=== PATIENT | male | born 1985 | race Caucasian/White ===

== ENCOUNTER 2020-05-19 18:22 | Emergency (ER) | payer OTHER ==
[2020-05-19] MEDS ORDERED: SODIUM CHLORIDE 0.9% 1,000 ML IV STA (19:22)
--- NOTE | 2020-05-19 20:19 | ED ---
General Adult HPI - General Chief complaint: Nausea/Vomiting/Diarrhea Stated complaint: WEAK, VOMMITING,, VISON LOSS Time Seen by Provider: 05/19/20 19:04 Source: patient Mode of arrival: ambulatory Limitations: no limitations - History of Present Illness Initial comments: 35-year-old male with a history of brain tumor and ongoing radiation treatment presents to the emergency department this evening with complaints of nausea, vomiting, and decreased appetite, onset today. Also reports a lack of energy for the last 4-5 days. Denies fever, headache, vision changes (from baseline), abdominal pain, and sick exposures. States he had one episode of vomiting today; has been able to clear liquids and a small amount of bland food. Patient denies any recent rash, chills, cough, shortness of breath, chest pain, diarrhea, constipation, back pain, numbness, tingling, dizziness, hematuria, dysuria, urinary urgency, urinary frequency, or any other complaints. - Related Data Allergies Allergy/AdvReac Type Severity Reaction Status Date / Time No Known Allergies Allergy Verified 05/19/20 18:40 Review of Systems ROS Statement: Those systems with pertinent positive or pertinent negative responses have been documented in the HPI. ROS Other: All systems not noted in ROS Statement are negative. Past Medical History Past Medical History: Cancer, Thyroid Disorder Additional Past Medical History / Comment(s): brain tumor History of Any Multi-Drug Resistant Organisms: None Reported Additional Past Surgical History / Comment(s): tumor removed Past Psychological History: No Psychological Hx Reported Smoking Status: Current some day smoker Past Alcohol Use History: None Reported Past Drug Use History: None Reported General Exam Limitations: no limitations (Well-developed, well-nourished male in no acute distress. Initial temperature 99.1, pulse 93, respirations 18, blood pressure 106/71, pulse ox 100% on room air.) General appearance: alert, in no apparent distress Eye exam: Present: normal appearance, PERRL, EOMI. Absent: scleral icterus, conjunctival injection, periorbital swelling Respiratory exam: Present: normal lung sounds bilaterally. Absent: respiratory distress, wheezes, rales, rhonchi, stridor Cardiovascular Exam: Present: regular rate, normal rhythm, normal heart sounds. Absent: systolic murmur, diastolic murmur, rubs, gallop, clicks GI/Abdominal exam: Present: soft, normal bowel sounds. Absent: distended, tenderness, guarding, rebound, rigid Neurological exam: Present: alert, oriented X3, CN II-XII intact Psychiatric exam: Present: normal affect, normal mood Skin exam: Present: warm, dry, intact, normal color. Absent: rash Course Vital Signs 05/19/20 18:33 Temperature 99.1 F Pulse Rate 93 Respiratory 18 Rate Blood Pressure 106/71 O2 Sat by Pulse 100 Oximetry Medical Decision Making - Medical Decision Making 35-year-old male with a history of brain tumor resection and ongoing radiation presents to the emergency department this evening with complaints of nausea and one episode of vomiting, onset today. Reports nonspecific fatigue and decreased appetite over the last 4-5 days. Patient denies any known sick contacts and states nausea has resolved prior to arrival. Mild dehydration evident in patient's lab work with a Sodium of 134 and BUN is 22. Patient did receive a liter of IV fluids and reports overall improvement. Encouraged to continue small amounts of fluid and increase as tolerated. Discussed importance of keeping all regularly scheduled follow-up appointments with specialists as well as establishing with a primary care provider. Return parameters were discussed in detail. Patient and his mother verbalized understanding and agree with this plan. - Lab Data Result diagrams: 05/19/20 19:36 05/19/20 19:36 Lab Results 05/19/20 05/19/20 05/19/20 Range/Units 19:36 19:36 19:36 WBC 3.9 (3.8-10.6) k/uL RBC 4.03 L (4.30-5.90) m/uL Hgb 11.6 L (13.0-17.5) gm/dL Hct 36.0 L (39.0-53.0) % MCV 89.2 (80.0-100.0) fL MCH 28.8 (25.0-35.0) pg MCHC 32.3 (31.0-37.0) g/dL RDW 15.9 H (11.5-15.5) % Plt Count 128 L (150-450) k/uL Neutrophils % 58 % Lymphocytes % 30 % Monocytes % 5 % Eosinophils % 4 % Basophils % 1 % Neutrophils # 2.3 (1.3-7.7) k/uL Lymphocytes # 1.2 (1.0-4.8) k/uL Monocytes # 0.2 (0-1.0) k/uL Eosinophils # 0.2 (0-0.7) k/uL Basophils # 0.0 (0-0.2) k/uL PT 11.3 (9.0-12.0) sec INR 1.1 (<1.2) APTT 28.5 (22.0-30.0) sec Sodium 134 L (137-145) mmol/L Potassium 4.4 (3.5-5.1) mmol/L Chloride 100 (98-107) mmol/L Carbon Dioxide 24 (22-30) mmol/L Anion Gap 10 mmol/L BUN 22 H (9-20) mg/dL Creatinine 1.09 (0.66-1.25) mg/dL Est GFR (CKD-EPI)AfAm >90 (>60 ml/min/1.73 sqM) Est GFR (CKD-EPI)NonAf 88 (>60 ml/min/1.73 sqM) Glucose 79 (74-99) mg/dL Plasma Lactic Acid Chema (0.7-2.0) mmol/L Calcium 9.5 (8.4-10.2) mg/dL Magnesium 2.5 H (1.6-2.3) mg/dL Total Bilirubin 1.6 H (0.2-1.3) mg/dL AST 24 (17-59) U/L ALT 11 (4-49) U/L Alkaline Phosphatase 49 (38-126) U/L Troponin I (0.000-0.034) ng/mL Total Protein 8.7 H (6.3-8.2) g/dL Albumin 4.9 (3.5-5.0) g/dL 05/19/20 05/19/20 Range/Units 19:36 19:36 WBC (3.8-10.6) k/uL RBC (4.30-5.90) m/uL Hgb (13.0-17.5) gm/dL Hct (39.0-53.0) % MCV (80.0-100.0) fL MCH (25.0-35.0) pg MCHC (31.0-37.0) g/dL RDW (11.5-15.5) % Plt Count (150-450) k/uL Neutrophils % % Lymphocytes % % Monocytes % % Eosinophils % % Basophils % % Neutrophils # (1.3-7.7) k/uL Lymphocytes # (1.0-4.8) k/uL Monocytes # (0-1.0) k/uL Eosinophils # (0-0.7) k/uL Basophils # (0-0.2) k/uL PT (9.0-12.0) sec INR (<1.2) APTT (22.0-30.0) sec Sodium (137-145) mmol/L Potassium (3.5-5.1) mmol/L Chloride (98-107) mmol/L Carbon Dioxide (22-30) mmol/L Anion Gap mmol/L BUN (9-20) mg/dL Creatinine (0.66-1.25) mg/dL Est GFR (CKD-EPI)AfAm (>60 ml/min/1.73 sqM) Est GFR (CKD-EPI)NonAf (>60 ml/min/1.73 sqM) Glucose (74-99) mg/dL Plasma Lactic Acid Chema 1.2 (0.7-2.0) mmol/L Calcium (8.4-10.2) mg/dL Magnesium (1.6-2.3) mg/dL Total Bilirubin (0.2-1.3) mg/dL AST (17-59) U/L ALT (4-49) U/L Alkaline Phosphatase (38-126) U/L Troponin I <0.012 (0.000-0.034) ng/mL Total Protein (6.3-8.2) g/dL Albumin (3.5-5.0) g/dL - EKG Data EKG shows normal: sinus rhythm Rate: normal EKG Comments: EKG was obtained at 1940 showing normal sinus rhythm. Ventricular rate 90, WI interval 208, QRS duration 96, QT/QTc 340/415. Interpreted as an abnormal ECG with right axis deviation, pulmonary disease pattern, and nonspecific T-wave abnormality. - Radiology Data Radiology results: report reviewed Two-view chest x-ray was obtained. Findings include normal size heart, normal pulmonary vasculature, clear lungs. Impression per Dr. Yoon is no acute pulmonary process. Disposition Clinical Impression: Dehydration, Nausea & vomiting Disposition: HOME SELF-CARE Condition: Good Instructions (If sedation given, give patient instructions): Dehydration (ED), Acute Nausea and Vomiting (ED) Additional Instructions: Increase fluids as tolerated. Rest. Follow-up with primary care provider in the next 1-2 days for recheck. Keep all scheduled appointments with your specialists. Return to the emergency department with any new, worsening, or concerning symptoms. Is patient prescribed a controlled substance at d/c from ED?: No Referrals: None,Stated [Primary Care Provider] - 1-2 days
[2020-05-19 20:26] LABS: Basophils % (A) 1 %; Eosinophils # (A) 0.2 k/uL (0-0.7); Eosinophils % (A) 4 %; HGB 11.6 gm/dL (13.0-17.5); Lymphocytes # (A) 1.2 k/uL (1.0-4.8); Lymphocytes % (A) 30 %; MCH 28.8 pg (25.0-35.0); MCHC 32.3 g/dL (31.0-37.0); MCV 89.2 fL (80.0-100.0); Mean Platelet Volume 11.6; Monocytes # (A) 0.2 k/uL (0-1.0); Monocytes % (A) 5 %; Neutrophils # (A) 2.3 k/uL (1.3-7.7); Neutrophils % (A) 58 %; Platelet Count 128 k/uL (150-450); RBC 4.03 m/uL (4.30-5.90); RDW 15.9 % (11.5-15.5); WBC 3.9 k/uL (3.8-10.6)
--- NOTE | 2020-05-19 20:34 | XR ---
EXAMINATION TYPE: XR chest 2V DATE OF EXAM: 05/19/2020 COMPARISON: None INDICATION: Weakness vomiting TECHNIQUE: Frontal and lateral views of the chest are obtained. FINDINGS: The heart size is normal. The pulmonary vasculature is normal. The lungs are clear. IMPRESSION: 1. No acute pulmonary process.
[2020-05-19 20:36] LABS: ALT 11 U/L (4-49); AST 24 U/L (17-59); African American GFR (CKD) >90 (>60 ml/min/1.73 sqM); Albumin 4.9 g/dL (3.5-5.0); Alkaline Phosphatase 49 U/L (38-126); Anion Gap 10 mmol/L; Blood Urea Nitrogen 22 mg/dL (9-20); Calcium 9.5 mg/dL (8.4-10.2); Carbon Dioxide 24 mmol/L (22-30); Chloride 100 mmol/L (98-107); Glucose 79 mg/dL (74-99); Magnesium 2.5 mg/dL (1.6-2.3); Non-African American GFR(CKD) 88 (>60 ml/min/1.73 sqM); Potassium 4.4 mmol/L (3.5-5.1); Sodium 134 mmol/L (137-145); Total Bilirubin 1.6 mg/dL (0.2-1.3); Total Protein 8.7 g/dL (6.3-8.2)
[2020-05-19 20:40] LABS: INR 1.1 (<1.2); Partial Thromboplastin Time 28.5 sec (22.0-30.0); Prothrombin Time 11.3 sec (9.0-12.0)
[2020-05-19 22:36] VITALS: RESP 16
[2020-05-19 22:37] VITALS: BP 138/68; PULSE 78; TEMP 98.8
== END 2020-05-19 22:40 | disposition home or self-care (01) ==
LOC: EC 18:22
DX: D49.6 Neoplasm of unspecified behavior of brain (principal); E86.0 Dehydration; F17.200 Nicotine dependence, unspecified, uncomplicated; Z20.828 Contact with and (suspected) exposure to other viral communicable diseases
CPT/HCPCS: 99285; 96360; 96361; 93005; 80053; 83605; 83735; 84484; 85025; 85610; 85730; 87040; 71046; U0003

== ENCOUNTER 2020-07-05 17:48 | Emergency (ER) | payer OTHER ==
[2020-07-05 18:15] VITALS: RESP 18
[2020-07-05] MEDS ORDERED: SODIUM CHLORIDE 0.9% 1,000 ML IV STA (18:56)
[2020-07-05 19:21] LABS: Basophils % (A) 1 %; Eosinophils # (A) 0.2 k/uL (0-0.7); Eosinophils % (A) 7 %; HCT 31.9 % (39.0-53.0); HGB 10.7 gm/dL (13.0-17.5); Lymphocytes # (A) 1.1 k/uL (1.0-4.8); Lymphocytes % (A) 34 %; MCH 29.2 pg (25.0-35.0); MCHC 33.5 g/dL (31.0-37.0); MCV 87.3 fL (80.0-100.0); Monocytes # (A) 0.2 k/uL (0-1.0); Monocytes % (A) 6 %; Neutrophils # (A) 1.7 k/uL (1.3-7.7); Neutrophils % (A) 51 %; Platelet Count 129 k/uL (150-450); RBC 3.65 m/uL (4.30-5.90); RDW 14.9 % (11.5-15.5); WBC 3.4 k/uL (3.8-10.6)
--- NOTE | 2020-07-05 19:23 | ED ---
General Adult HPI - General Source: patient, RN notes reviewed Mode of arrival: ambulatory Limitations: no limitations <Terry Mendiola - Last Filed: 07/05/20 20:20> <Sophia Aparicio - Last Filed: 07/06/20 13:23> - General Chief complaint: Skin/Abscess/Foreign Body Stated complaint: facial swelling Time Seen by Provider: 07/05/20 18:33 - History of Present Illness Initial comments: 35-year-old male with a past medical history of brain tumor presents to the emergency room for facial swelling and neck pain. Patient reports that he noticed today his face was swollen up to his eye. He noticed a lump to the back side of his neck. He has not had any fevers or chills. Patient does take steroids daily given his history of brain cancer. He had chemotherapy last in March.Patient has no other complaints at this time including shortness of breath, chest pain, abdominal pain, nausea or vomiting, headache, or visual changes. (Terry Mendiola) - Related Data Home Medications Medication Instructions Recorded Confirmed Hydrocortisone 20 mg PO BID 07/05/20 07/05/20 Levothyroxine Sodium 137 mcg PO DAILY 07/05/20 07/05/20 Vitamin D3 50,000iu 50,000 unit PO Q7D 07/05/20 07/05/20 Previous Rx's Medication Instructions Recorded Cephalexin [Keflex] 500 mg PO Q6HR 10 Days #40 cap 07/05/20 Sulfamethox-Tmp 800-160Mg [Bactrim 1 tab PO Q12HR #20 tab 07/05/20 DS 800-160 mg] Allergies Allergy/AdvReac Type Severity Reaction Status Date / Time No Known Allergies Allergy Verified 07/05/20 19:41 Review of Systems ROS Other: All systems not noted in ROS Statement are negative. <Terry Mendiola - Last Filed: 07/05/20 20:20> ROS Other: All systems not noted in ROS Statement are negative. <Sophia Aparicio - Last Filed: 07/06/20 13:23> ROS Statement: Those systems with pertinent positive or pertinent negative responses have been documented in the HPI. Past Medical History Past Medical History: Cancer, Thyroid Disorder Additional Past Medical History / Comment(s): brain tumor History of Any Multi-Drug Resistant Organisms: None Reported Additional Past Surgical History / Comment(s): tumor removed (not able to get it all) Past Psychological History: No Psychological Hx Reported Smoking Status: Current some day smoker Past Alcohol Use History: None Reported Past Drug Use History: None Reported <Terry Mendiola P - Last Filed: 07/05/20 20:20> General Exam Limitations: no limitations General appearance: alert, in no apparent distress Head exam: Present: atraumatic, normocephalic, normal inspection Eye exam: Present: normal appearance, PERRL, EOMI, periorbital swelling (The patient has mild edema of the right maxillary area up to below the right eye. This is nonerythematous, nonindurated, nontender.). Absent: scleral icterus, conjunctival injection ENT exam: Present: normal exam, normal oropharynx (Patient does not have any evidence of dental abscess with direct visualization and palpation of gumline nor any pain with percussion of the teeth with a tongue blade.), mucous membranes moist Neck exam: Present: normal inspection, full ROM, other (Patient has a nodule noted to the right posterior neck measuring about 1 cm x 1 cm that is tender and slightly erythematous. This is not midline. He has full range motion of the neck. No other surrounding edema or erythema. No tracking redness.). Absent: tenderness, meningismus, lymphadenopathy Respiratory exam: Present: normal lung sounds bilaterally. Absent: respiratory distress, wheezes, rales, rhonchi, stridor Cardiovascular Exam: Present: regular rate, normal rhythm, normal heart sounds. Absent: systolic murmur, diastolic murmur, rubs, gallop, clicks GI/Abdominal exam: Present: soft, normal bowel sounds. Absent: distended, tenderness, guarding, rebound, rigid Neurological exam: Present: alert <Terry Mendiola P - Last Filed: 07/05/20 20:20> Course <Terry Mendiola P - Last Filed: 07/05/20 20:20> Vital Signs 07/05/20 07/05/20 18:10 20:42 Temperature 99 F 98.8 F Pulse Rate 79 77 Respiratory 18 18 Rate Blood Pressure 110/74 122/78 O2 Sat by Pulse 100 100 Oximetry - Reevaluation(s) Reevaluation #1: 07/05/20 20:20 Patient was evaluated by Dr. Aparicio. (Terry Mendiola) Medical Decision Making - Lab Data Result diagrams: 07/05/20 19:11 07/05/20 19:11 <Terry Mendiola - Last Filed: 07/05/20 20:20> - Lab Data Result diagrams: 07/05/20 19:11 07/05/20 19:11 <Sophia Aparicio - Last Filed: 07/06/20 13:23> - Medical Decision Making HPI and physical exam as documented. Patient does have minimal edema of the maxillary area extending up into the inferior periorbital area. This is non-erythematous, nontender. Patient does not have any swelling of the anterior neck. No difficulty swallowing. No dental pain or evidence of dental abscess on direct visualization or palpation of the gum line. No tenderness of the teeth with percussion with tongue blade. He does have a small 1 cm x 1 cm nodu le noted to the posterior right paraspinal area. Minimal erythema. CBC unremarkable. Hemoglobin and platelet count are stable. CMP unremarkable. Given patient's history a computed tomography scan was ordered after patient was evaluated by Dr. Aparicio. This showed postsurgical changes as well as subcutaneous edema consistent with cellulitis over the posterior neck. Mild subcutaneous edema over the anterior right maxilla. At this time patient will be started on antibiotics. He will follow-up with his doctor in one to 2 days. He will return here for any worsening symptoms return discussed in depth with him. (Terry Mendiola) I was available for consultation in the emergency department. The history and physical exam were done by the midlevel provider. I was consulted for this patients care. I reviewed the case with the midlevel provider and based on their presentation of the patient, I agree with the assessment, medical decision making and plan of care as documented. Chart was dictated using [employer] dictation software. Attempts were made to correct any dictation errors however some typographical errors may persist. Patient was seen during a national state of emergency due to the Covid-19 pandemic. (Sophia Aparicio) - Lab Data Lab Results 07/05/20 07/05/20 07/05/20 Range/Units 19:11 19:11 19:11 WBC 3.4 L (3.8-10.6) k/uL RBC 3.65 L (4.30-5.90) m/uL Hgb 10.7 L (13.0-17.5) gm/dL Hct 31.9 L (39.0-53.0) % MCV 87.3 (80.0-100.0) fL MCH 29.2 (25.0-35.0) pg MCHC 33.5 (31.0-37.0) g/dL RDW 14.9 (11.5-15.5) % Plt Count 129 L (150-450) k/uL MPV 9.0 Neutrophils % 51 % Lymphocytes % 34 % Monocytes % 6 % Eosinophils % 7 % Basophils % 1 % Neutrophils # 1.7 (1.3-7.7) k/uL Lymphocytes # 1.1 (1.0-4.8) k/uL Monocytes # 0.2 (0-1.0) k/uL Eosinophils # 0.2 (0-0.7) k/uL Basophils # 0.0 (0-0.2) k/uL Sodium 140 (137-145) mmol/L Potassium 3.8 (3.5-5.1) mmol/L Chloride 108 H (98-107) mmol/L Carbon Dioxide 27 (22-30) mmol/L Anion Gap 5 mmol/L BUN 12 (9-20) mg/dL Creatinine 0.86 (0.66-1.25) mg/dL Est GFR (CKD-EPI)AfAm >90 (>60 ml/min/1.73 sqM) Est GFR (CKD-EPI)NonAf >90 (>60 ml/min/1.73 sqM) Glucose 70 L (74-99) mg/dL Plasma Lactic Acid Chema 1.1 (0.7-2.0) mmol/L Calcium 8.8 (8.4-10.2) mg/dL Total Bilirubin 0.6 (0.2-1.3) mg/dL AST 31 (17-59) U/L ALT 12 (4-49) U/L Alkaline Phosphatase 48 (38-126) U/L Total Protein 7.1 (6.3-8.2) g/dL Albumin 4.0 (3.5-5.0) g/dL Disposition Is patient prescribed a controlled substance at d/c from ED?: No Time of Disposition: 20:28 <Marlena,Terry P - Last Filed: 07/05/20 20:20> <Sophia Aparicio - Last Filed: 07/06/20 13:23> Clinical Impression: Cellulitis Disposition: HOME SELF-CARE Condition: Good Instructions (If sedation given, give patient instructions): Cellulitis (ED) Additional Instructions: Please take antibiotic as directed. Please follow-up with your doctor in one to 2 days. If symptoms are worsening return to the emergency room. Prescriptions: Sulfamethox-Tmp 800-160Mg [Bactrim DS 800-160 mg] 1 tab PO Q12HR #20 tab Cephalexin [Keflex] 500 mg PO Q6HR 10 Days #40 cap Referrals: Roddy Langford [STAFF PHYSICIAN] - 1-2 days
[2020-07-05 19:27] LABS: ALT 12 U/L (4-49); AST 31 U/L (17-59); African American GFR (CKD) >90 (>60 ml/min/1.73 sqM); Alkaline Phosphatase 48 U/L (38-126); Anion Gap 5 mmol/L; Blood Urea Nitrogen 12 mg/dL (9-20); Calcium 8.8 mg/dL (8.4-10.2); Carbon Dioxide 27 mmol/L (22-30); Chloride 108 mmol/L (98-107); Glucose 70 mg/dL (74-99); Non-African American GFR(CKD) >90 (>60 ml/min/1.73 sqM); Potassium 3.8 mmol/L (3.5-5.1); Sodium 140 mmol/L (137-145); Total Bilirubin 0.6 mg/dL (0.2-1.3); Total Protein 7.1 g/dL (6.3-8.2)
--- NOTE | 2020-07-05 20:03 | CT ---
EXAMINATION TYPE: CT soft tissue neck w con DATE OF EXAM: 07/05/2020 COMPARISON: None HISTORY: Facial swelling x1 day. CT DLP: 328.6 mGycm Automated exposure control for dose reduction was used. CONTRAST: Performed with IV Contrast, patient injected with 100ml mL of Isovue 300. Images were obtained from the level of the aortic arch to the orbits with IV contrast. The globes are symmetric. There is no evidence of retro-orbital mass. Nasal bone is intact. There is fairly normal aeration of the paranasal sinuses. There is large bony defect involving the skull base at the sphenoid bone in the midline relate to pituitary surgery. There is fat density at the skull ba se consistent with packing of fatty tissue at the surgery site. The retropharyngeal soft tissues are intact. Epiglottis is normal. Tongue appears normal. The subglot tic trachea appears normal. There is mild subcutaneous edema in the posterior neck in the midline into the right side consistent with focal cellulitis. I see no cervical adenopathy. There is normal contrast opacification of the ca rotid arteries and jugular veins. Mandible is intact. The maxilla is intact. Zygomatic arches appear normal. There is mild soft tissue swelling in the subcutaneous tissues over the anterior right maxill a. The parotid glands are symmetric. Submandibular salivary glands are symmetric. IMPRESSION: Pituitary fossa surgery. No obvious sign of recurrent tumor. Comparison with an old exam would be hel pful. Subcutaneous edema consistent with cellulitis over the posterior neck. Mild subcutaneous edema over the anterior right maxilla.
[2020-07-05] MEDS ORDERED: CEPHALEXIN 500 MG CAP PO STA (20:21)
[2020-07-05] MEDS ORDERED: SULFAMETHOX-TMP 800-160MG 1 EACH TAB PO STA (20:21)
[2020-07-05 20:45] VITALS: BP 122/78; PULSE 77; TEMP 98.8
== END 2020-07-05 20:45 | disposition home or self-care (01) ==
LOC: EC 17:48
DX: L03.221 Cellulitis of neck (principal); R59.0 Localized enlarged lymph nodes; E07.9 Disorder of thyroid, unspecified; F17.200 Nicotine dependence, unspecified, uncomplicated; Z79.890 Hormone replacement therapy; Z85.841 Personal history of malignant neoplasm of brain
CPT/HCPCS: 36415; 80053; 83605; 85025; 70491; 99284; 96360; Q9967

== ENCOUNTER → 2022-05-02 | Outpatient (CLI) | payer OTHER ==
[2022-05-02 22:35] LABS: Appearance,Urine Clear (Clear); Bilirubin,Urine Negative (Negative); Blood,Urine Negative (Negative); Color,Urine Yellow (Yellow); Ketones,Urine Trace mg/dL (Negative); Nitrite,Urine Negative (Negative); Specific Gravity,Urine 1.027 (1.001-1.030); Urobilinogen,Urine 0.2 (0.2,1.0)
[2022-05-02 23:15] LABS: Basophils # (A) 0.06 X 10*3/uL (0.00-0.10); Basophils % (A) 1.2 %; Eosinophils % (A) 8.1 %; HCT 28.1 % (39.6-50.0); HGB 9.3 g/dL (13.0-17.0); Immature Grans, Automated 0 %; Lymphocytes # (A) 2.55 X 10*3/uL (0.90-5.00); Lymphocytes % (A) 51.7 %; MCH 28.5 pg (27.0-32.0); MCHC 33.1 g/dL (32.0-37.0); MCV 86.2 fL (80.0-97.0); Mean Platelet Volume 12.6 fL (9.5-12.2); Monocytes # (A) 0.31 X 10*3/uL (0.20-1.00); Monocytes % (A) 6.3 %; NRBC Per 100 WBC 0 /100 WBCS (0.0-0.0); Neutrophils # (A) 1.61 X 10*3/uL (1.80-7.70); Neutrophils % (A) 32.7 %; Platelet Count 134 X 10*3/uL (140-440); RBC 3.26 X 10*6/uL (4.40-5.60); RDW 15.5 % (11.5-14.5); WBC 4.93 X 10*3/uL (4.50-10.00)
[2022-05-02 23:32] LABS: % Iron Saturation 44.05 (15.00-50.00); ALT 11 U/L (10-49); AST 33 U/L (14-35); African American GFR (CKD) 93.7 (60.0-200.0); Albumin 4.4 g/dL (3.8-4.9); Albumin/Globulin Ratio 1.73 (1.60-3.17); Alkaline Phosphatase 40 U/L (41-126); BUN/Creat Ratio 11.13 Ratio (12.00-20.00); Blood Urea Nitrogen 12.8 mg/dL (9.0-27.0); Calcium 9.3 mg/dL (8.7-10.3); Carbon Dioxide 24.4 mmol/L (20.0-27.5); Chloride 105 mmol/L (96-109); Globulin 2.6 g/dL (1.6-3.3); Glucose 85 mg/dL (70-110); Iron 103 ug/dL (65-175); Non-African American GFR(CKD) 80.8 (60.0-200.0); Phosphorus 4.5 mg/dL (2.4-5.1); Potassium 4.2 mmol/L (3.5-5.5); Sodium 139 mmol/L (135-145); Total Iron Binding Capacity 234 ug/dL (228-460)
[2022-05-03 00:05] LABS: Creatine Kinase 365 U/L (35-257)
[2022-05-03 00:10] LABS: Erythrocyte Sedimentation Rate 26 mm/Hr (0-15)
[2022-05-03 00:21] LABS: Thyroid Peroxidase Antibodies 9.5 U/mL (0.0-33.0)
[2022-05-03 00:31] LABS: Chol/HDL Ratio 10.28 Ratio
[2022-05-03 00:41] LABS: T4, Free (Free Thyroxine) <0.100 ng/dL (0.800-1.800)
--- NOTE | 2022-05-03 07:22 | XR ---
EXAMINATION TYPE: XR chest 2V DATE OF EXAM: 05/03/2022 6:25 AM COMPARISON: Chest radiographs from 05/19/2020 TECHNIQUE: XR chest 2V Frontal and lateral views of the chest. CLINICAL INDICATION:Male, 37 years old with history of R0602 SOB; FINDINGS: Lungs/Pleura: There is no evidence of pleural effusion, focal consolidation, or pneumothorax. Pulmonary vascularity: Unremarkable. Heart/mediastinum: Cardiomediastinal silhouette is unremarkable. Musculoskeletal: No acute osseous pathology. IMPRESSION: No acute cardiopulmonary disease/process.
[2022-05-03 19:47] LABS: Microalbumin Creatinine Ratio <30 mg/g Creat (0-30)
== END | disposition home or self-care (01) ==
LOC: LABWHC1 16:26
PROVIDERS: ATTEND Internal Medicine
DX: E78.5 Hyperlipidemia, unspecified (principal); E55.9 Vitamin D deficiency, unspecified; I95.9 Hypotension, unspecified; R06.02 Shortness of breath; E87.8 Other disorders of electrolyte and fluid balance, not elsewhere classified; E03.9 Hypothyroidism, unspecified; D64.9 Anemia, unspecified
CPT/HCPCS: 36415; 71046; 80053; 80061; 81003; 82043; 82306; 82550; 82570; 82728; 83036; 83540; 83550; 83721; 83735; 83970; 84100; 84439; 84443; 85025; 85652; 86140; 86376; 86800

== ENCOUNTER → 2022-07-26 | Outpatient (CLI) | payer OTHER ==
[2022-07-26 16:31] LABS: African American GFR (CKD) 110.9 (60.0-200.0); Albumin 4.3 g/dL (3.8-4.9); Albumin/Globulin Ratio 1.65 (1.60-3.17); Anion Gap 9.8 mmol/L (10.00-18.00); BUN/Creat Ratio 16.1 Ratio (12.00-20.00); Blood Urea Nitrogen 16.1 mg/dL (9.0-27.0); Calcium 9.2 mg/dL (8.7-10.3); Carbon Dioxide 26.2 mmol/L (20.0-27.5); Follicle Stimulating Hormone 0.8 mIU/mL; Globulin 2.6 g/dL (1.6-3.3); Luteinizing Hormone 0.6 mIU/mL; Non-African American GFR(CKD) 95.7 (60.0-200.0); Prolactin 5.1 ng/mL (2.100-17.700); Total Bilirubin 0.4 mg/dL (0.30-1.20); Total Protein 6.9 g/dL (6.2-8.2)
== END | disposition home or self-care (01) ==
LOC: LABWHC1 07:59
PROVIDERS: ATTEND Internal Medicine
DX: E23.0 Hypopituitarism (principal)
CPT/HCPCS: 36415; 80053; 82024; 82040; 82533; 83001; 83002; 84146; 84270; 84305; 84403

== ENCOUNTER → 2023-01-08 | Outpatient (CLI) | payer OTHER ==
[2023-01-08 16:30] LABS: Basophils # (A) 0.08 X 10*3/uL (0.00-0.10); Basophils % (A) 1.7 %; Eosinophils # (A) 0.44 X 10*3/uL (0.04-0.35); Eosinophils % (A) 9.5 %; HCT 31.1 % (39.6-50.0); HGB 9.9 d/dL (12.0-15.0); Immature Grans, Automated 0 %; Lymphocytes # (A) 2.41 X 10*3/uL (0.90-5.00); Lymphocytes % (A) 51.8 %; MCH 28.8 pg (27.0-32.0); MCHC 31.8 d/dL (32.0-37.0); MCV 90.4 FL (80.0-97.0); Mean Platelet Volume 12.5 FL (9.5-12.2); Monocytes # (A) 0.24 X 10*3/uL (0.20-1.00); Monocytes % (A) 5.2 %; NRBC Per 100 WBC 0 X 10*3/uL (0.00-0.01); Neutrophils # (A) 1.48 X 10*3/uL (1.80-7.70); Neutrophils % (A) 31.8 %; Platelet Count 198 X 10*3/uL (140-440); RBC 3.44 X 10*6/uL (4.40-5.60); RDW 15.6 % (11.5-14.5); WBC 4.65 X 10*3/uL (4.50-10.00)
[2023-01-08 16:46] LABS: Erythrocyte Sedimentation Rate 64 mm/Hr (0-15)
[2023-01-08 17:05] LABS: Thyroid Peroxidase Antibodies <9.0 U/mL (0.0-33.0)
[2023-01-08 17:19] LABS: % Iron Saturation 24.29 (15.00-50.00); Chol/HDL Ratio 10.66 Ratio; Creatine Kinase 677 U/L (35-257); Iron 68 UG/DL (65-175); LDL Cholesterol,Calculated 300.1 mg/dL (0.0-131.0); Magnesium 2.1 mg/dL (1.5-2.4); Phosphorus 4.8 mg/dL (2.4-5.1); Total Iron Binding Capacity 280 UG/DL (228-460); Uric Acid 5.7 mg/dL (3.7-8.7)
[2023-01-08 17:20] LABS: ALT 39 U/L (10-49); AST 74 U/L (14-35); Albumin 4.7 d/dL (3.8-4.9); Albumin/Globulin Ratio 1.68 Ratio (1.60-3.17); Alkaline Phosphatase 60 U/L (41-126); BUN/Creat Ratio 13.83 Ratio (12.00-20.00); Blood Urea Nitrogen 16.6 mg/dL (9.0-27.0); Calcium 9.7 mg/dL (8.7-10.3); Carbon Dioxide 25.6 mmol/L (21.6-31.8); Chloride 103 mmol/L (96-109); Globulin 2.8 d/dL (1.6-3.3); Glucose 74 mg/dL (70-110); Sodium 141 mmol/L (135-145); Total Bilirubin 0.4 mg/dL (0.3-1.2); Total Protein 7.5 d/dL (6.2-8.2)
[2023-01-08 18:00] LABS: Testosterone <10.00 ng/mL (123.06-813.86)
== END | disposition home or self-care (01) ==
LOC: LABWHC1 11:40
PROVIDERS: ATTEND Internal Medicine
DX: Z00.00 Encounter for general adult medical examination without abnormal findings (principal); I95.9 Hypotension, unspecified; D64.9 Anemia, unspecified; E87.1 Hypo-osmolality and hyponatremia; E03.9 Hypothyroidism, unspecified; E23.0 Hypopituitarism
CPT/HCPCS: 36415; 80053; 80061; 82043; 82306; 82533; 82550; 82570; 82728; 83036; 83540; 83550; 83735; 83970; 84100; 84146; 84402; 84403; 84439; 84443; 84550; 85025; 85652; 86140; 86376; 86800

== ENCOUNTER → 2023-02-09 | Outpatient (CLI) | payer OTHER ==
[2023-02-10 02:56] LABS: ALT 23 U/L (10-49); AST 46 U/L (14-35); Albumin 4.8 d/dL (3.8-4.9); Albumin/Globulin Ratio 1.71 Ratio (1.60-3.17); Alkaline Phosphatase 48 U/L (41-126); Blood Urea Nitrogen 14.3 mg/dL (9.0-27.0); Calcium 9.9 mg/dL (8.7-10.3); Carbon Dioxide 22.2 mmol/L (21.6-31.8); Chloride 103 mmol/L (96-109); Chol/HDL Ratio 8.41 Ratio; Globulin 2.8 d/dL (1.6-3.3); Glucose 69 mg/dL (70-110); LDL Cholesterol,Calculated 244.7 mg/dL (0.0-131.0); Potassium 3.8 mmol/L (3.5-5.5); Sodium 140 mmol/L (135-145); T4, Free (Free Thyroxine) 0.17 ng/dL (0.80-1.80); Total Bilirubin 0.7 mg/dL (0.3-1.2); Total Protein 7.6 d/dL (6.2-8.2)
== END | disposition home or self-care (01) ==
LOC: LABWHC1 13:18
PROVIDERS: ATTEND Internal Medicine
DX: E23.0 Hypopituitarism (principal); E89.0 Postprocedural hypothyroidism; E78.5 Hyperlipidemia, unspecified
CPT/HCPCS: 36415; 80053; 80061; 84439; 84443

== ENCOUNTER 2023-04-29 09:25 | Emergency (ER) | payer OTHER ==
[2023-04-29 09:31] VITALS: BP 105/69; PULSE 101; RESP 18; TEMP 98.6
--- NOTE | 2023-04-29 09:40 | ED ---
URI HPI - General Chief Complaint: Upper Respiratory Infection Stated Complaint: Weakness Time Seen by Provider: 04/29/23 09:34 Source: patient, RN notes reviewed Mode of arrival: ambulatory Limitations: no limitations - History of Present Illness Initial Comments: 38-year-old male presents emergency Department chief complaint cough and cold like symptoms. Patient's been sick last few days. Patient has nasal congestion, lightheadedness denies any chest pain or shortness breath no sore throat states she just doesn't feel well no sick contacts denies any significant past medical history for lung disease or immunocompromise. - Related Data Home Medications Medication Instructions Recorded Confirmed Hydrocortisone 20 mg PO BID 07/05/20 07/05/20 Levothyroxine Sodium 137 mcg PO DAILY 07/05/20 07/05/20 Vitamin D3 50,000iu 50,000 unit PO Q7D 07/05/20 07/05/20 Previous Rx's Medication Instructions Recorded Cephalexin [Keflex] 500 mg PO Q6HR 10 Days #40 cap 07/05/20 Sulfamethox-Tmp 800-160Mg [Bactrim 1 tab PO Q12HR #20 tab 07/05/20 DS 800-160 mg] Allergies Allergy/AdvReac Type Severity Reaction Status Date / Time No Known Allergies Allergy Verified 04/29/23 09:30 Review of Systems ROS Statement: Those systems with pertinent positive or pertinent negative responses have been documented in the HPI. ROS Other: All systems not noted in ROS Statement are negative. Past Medical History Past Medical History: Cancer, Thyroid Disorder Additional Past Medical History / Comment(s): brain tumor History of Any Multi-Drug Resistant Organisms: None Reported Additional Past Surgical History / Comment(s): tumor removed (not able to get it all) Past Psychological History: No Psychological Hx Reported Smoking Status: Current some day smoker Past Alcohol Use History: None Reported Past Drug Use History: None Reported General Exam Limitations: no limitations General appearance: alert, in no apparent distress Head exam: Present: atraumatic, normocephalic, normal inspection Eye exam: Present: normal appearance, PERRL, EOMI. Absent: scleral icterus, conjunctival injection, periorbital swelling ENT exam: Present: normal exam, normal oropharynx, mucous membranes moist Neck exam: Present: normal inspection, full ROM. Absent: tenderness, meningismus, lymphadenopathy Respiratory exam: Present: normal lung sounds bilaterally. Absent: respiratory distress, wheezes, rales, rhonchi, stridor Cardiovascular Exam: Present: regular rate, normal rhythm, normal heart sounds. Absent: systolic murmur, diastolic murmur, rubs, gallop, clicks GI/Abdominal exam: Present: soft, normal bowel sounds. Absent: distended, tenderness, guarding, rebound, rigid Neurological exam: Present: alert, oriented X3 Skin exam: Present: warm, dry, intact, normal color. Absent: rash Course Vital Signs 04/29/23 04/29/23 09:27 09:44 Temperature 98.6 F Pulse Rate 101 H Respiratory 18 18 Rate Blood Pressure 105/69 O2 Sat by Pulse 99 Oximetry Medical Decision Making - Medical Decision Making Was pt. sent in by a medical professional or institution (TROY Gasca, CAUST[employer] LOADER, urgent care, hospital, or long term...) When possible be specific @ -No Did you speak to anyone other than the patient for history (EMS, parent, family, police, friend...)? What history was obtained from this source @ -No Did you review nursing and triage notes (agree or disagree)? Why? @ -I reviewed and agree with nursing and triage notes Were old charts reviewed (outside hosp., previous admission, EMS record, old EKG, old radiological studies, urgent care reports/EKG's, long term records)? Report findings @ -No old charts were reviewed Differential Diagnosis (chest pain, altered mental status, abdominal pain women, abdominal pain men, vaginal bleeding, weakness, fever, dyspnea, syncope, headache, dizziness, GI bleed, back pain, seizure, CVA, palpatations, mental health, musculoskeletal)? @ -URI, sinusitis, covid EKG interpreted by me (3pts min.). @ -None X-rays interpreted by me (1pt min.). @ -None done CT interpreted by me (1pt min.). @ -None done U/S interpreted by me (1pt. min.). @ -None done What testing was considered but not performed or refused? (CT, X-rays, U/S, labs)? Why? @ -None What meds were considered but not given or refused? Why? @ -None Did you discuss the management of the patient with other professionals (professionals i.e. Dr., PA, CAUSTICS LOADER, lab, RT, psych nurse, high school social science teacher, career services manager, teacher, sports development officer, telephonic case manager)? Give summary @ -No Was smoking cessation discussed for >3mins.? @ -No Was critical care preformed (if so, how long)? @ -No Were there social determinants of health that impacted care today? How? (Homelessness, low income, unemployed, alcoholism, drug addiction, transportation, low edu. Level, literacy, decrease access to med. care, usp, rehab)? @ -No Was there de-escalation of care discussed even if they declined (Discuss DNR or withdrawal of care, Hospice)? DNR status @ -No What co-morbidities impacted this encounter? (DM, HTN, Smoking, COPD, CAD, Cancer, CVA, ARF, Chemo, Hep., AIDS, mental health diagnosis, sleep apnea, morbid obesity)? @ -None Was patient admitted / discharged? Hospital course, mention meds given and route, prescriptions, significant lab abnormalities, going to OR and other pertinent info. @ -Patient left AMA prior to results Undiagnosed new problem with uncertain prognosis? @ -No Drug Therapy requiring intensive monitoring for toxicity (Heparin, Nitro, Insulin, Cardizem)? @ -No Were any procedures done? @ -[No] Diagnosis/symptom? @ -[URI] Acute, or Chronic, or Acute on Chronic? @ -[Acute] Uncomplicated (without systemic symptoms) or Complicated (systemic symptoms)? @ -[Uncomplicated] Side effects of treatment? @ -[No] Exacerbation, Progression, or Severe Exacerbation? @ -[No] Poses a threat to life or bodily function? How? (Chest pain, USA, [place], pneumonia, PE, COPD, DKA, ARF, appy, cholecystitis, CVA, Diverticulitis, Homicidal, Suicidal, threat to staff... and all critical care pts) @ -[No] - Lab Data Lab Results 04/29/23 Range/Units 09:41 Influenza Type A (PCR) Not Detected (Not Detectd) Influenza Type B (PCR) Not Detected (Not Detectd) RSV (PCR) Not Detected (Not Detectd) SARS-CoV-2 (PCR) Not Detected (Not Detectd) Disposition Clinical Impression: Acute upper respiratory infection Disposition: LEFT AGAINST MEDICAL ADVICE Referrals: None,Stated [Primary Care Provider] - 1-2 days Time of Disposition: 10:15
== END 2023-04-29 10:39 | disposition left against medical advice (07) ==
LOC: EC 09:25
DX: J06.9 Acute upper respiratory infection, unspecified (principal); E07.9 Disorder of thyroid, unspecified; F17.200 Nicotine dependence, unspecified, uncomplicated; Z79.890 Hormone replacement therapy; Z53.29 Procedure and treatment not carried out because of patient's decision for other reasons; Z20.822 Contact with and (suspected) exposure to COVID-19
CPT/HCPCS: 87636; 99285

== ENCOUNTER 2024-07-21 15:44 | Inpatient (IN) | payer MEDICAID, OTHER ==
--- NOTE | 2024-07-21 16:40 | ED ---
General Adult HPI - General Source: patient, RN notes reviewed Mode of arrival: ambulatory Limitations: no limitations <Gunjan Montaño - Last Filed: 07/21/24 16:37> <Julissa Miller - Last Filed: 07/22/24 02:00> - General Chief complaint: Psychiatric Symptoms Stated complaint: Mental Health Time Seen by Provider: 07/21/24 16:37 - History of Present Illness Initial comments: Quick [id number] male presenting with uncle for altered mental status x 2 days. Uncle reports patient has been pacing the home for the past 2 days. Denies suicidal or homicidal ideation. Uncle states his bizarre behavior is scaring everyone else in the household. States this is unusual behavior for him. He does report patient has a history of a brain tumor that was removed 2 years ago. No other known health conditions. (Gunjan Montaño) This is a 39-year-old male presenting with his uncle for complaint of changes and behavior and mental status over the past 2 days. Patient's uncle at bedside states the patient has been pacing around the home over the past 2 days and has not been acting himself. Patient is denying suicidal homicidal ideation. Patient endorses auditory hallucination. Denies visual hallucination. Denies previous suicidal attempts. Bedside states that the bizarre behavior of the patient is concerning and would like him to be evaluated. Patient does have a remote brain tumor 2 years ago on Eliquis concerned that this may have returned. He denies drug or alcohol use. No reported medical conditions. (Julissa Miller) - Related Data Home Medications Medication Instructions Recorded Confirmed Atorvastatin [Lipitor] 40 mg PO HS 07/21/24 07/21/24 Hydrocortisone [Cortef] 10 mg PO Q12H 07/21/24 07/21/24 Levothyroxine Sodium [Synthroid] 100 mcg PO DAILY 07/21/24 07/21/24 Allergies Allergy/AdvReac Type Severity Reaction Status Date / Time No Known Allergies Allergy Verified 07/21/24 20:56 Review of Systems ROS Other: All systems not noted in ROS Statement are negative. <Gunjan Montaño - Last Filed: 07/21/24 16:37> ROS Other: All systems not noted in ROS Statement are negative. <Julissa Miller - Last Filed: 07/22/24 02:00> ROS Statement: Those systems with pertinent positive or pertinent negative responses have been documented in the HPI. Past Medical History Past Medical History: Cancer, Thyroid Disorder Additional Past Medical History / Comment(s): brain tumor History of Any Multi-Drug Resistant Organisms: None Reported Additional Past Surgical History / Comment(s): tumor removed (not able to get it all) Past Psychological History: Depression Smoking Status: Current some day smoker Past Alcohol Use History: None Reported Past Drug Use History: None Reported <Gunjan Montaño - Last Filed: 07/21/24 16:37> General Exam Limitations: no limitations <Gunjan Montaño - Last Filed: 07/21/24 16:37> General appearance: alert, in no apparent distress ENT exam: Present: normal exam, mucous membranes moist Neck exam: Present: normal inspection. Absent: tenderness, meningismus, lym phadenopathy Respiratory exam: Present: normal lung sounds bilaterally. Absent: respiratory distress, wheezes, rales, rhonchi, stridor Cardiovascular Exam: Present: regular rate, normal rhythm, normal heart sounds. Absent: systolic murmur, diastolic murmur, rubs, gallop, clicks GI/Abdominal exam: Present: soft, normal bowel sounds. Absent: distended, tenderness, guarding, rebound, rigid Extremities exam: Present: normal inspection, full ROM, normal capillary refill. Absent: tenderness, pedal edema, joint swelling, calf tenderness Psychiatric exam: Present: flat affect Expanded Focused psych exam: Present: paranoid, perseverating, restlessness <Julissa Miller - Last Filed: 07/22/24 02:00> - General Exam Comments Initial Comments: Visual Physical Exam Vital signs reviewed General: Well-appearing, nontoxic, no acute distress. Head: Normocephalic, atraumatic Eyes: PERRLA, EOMI ENT: Airway patent Chest: Nonlabored breathing Skin: No visual rash, normal skin tone Neuro: Alert and oriented 3 Musculoskeletal: No gross abnormalities (Gunjan Montñao) Course Vital Signs 07/21/24 16:24 Temperature 98.2 F Pulse Rate 72 Respiratory 18 Rate Blood Pressure 127/83 O2 Sat by Pulse 100 Oximetry Medical Decision Making <Gunjan Montaño - Last Filed: 07/21/24 16:37> - Lab Data Result diagrams: 07/21/24 18:27 07/21/24 18:27 <Julissa Miller - Last Filed: 07/22/24 02:00> - Medical Decision Making I completed the quick note portion of this chart signed Gunjan Montaño PA-C (Gunjan Montaño) Was pt. sent in by a medical professional or institution (, PA, FURNIT[employer] PACKER, urgent care, hospital, or senior care...) When possible be specific @ -No Did you speak to anyone other than the patient for history (EMS, parent, family, police, friend...)? What history was obtained from this source @ -No Did you review nursing and triage notes (agree or disagree)? Why? @ -I reviewed and agree with nursing and triage notes Were old charts reviewed (outside hosp., previous admission, EMS record, old EKG, old radiological studies, urgent care reports/EKG's, senior care records)? Report findings @ -No old charts were reviewed Differential Diagnosis (chest pain, altered mental status, abdominal pain women, abdominal pain men, vaginal bleeding, weakness, fever, dyspnea, syncope, headache, dizziness, GI bleed, back pain, seizure, CVA, palpatations, mental health, musculoskeletal)? @ -Differential Mental Health Depression, anxiety, bipolar, psychosis, schizophrenia, borderline personality, situational depression, adjustment disorder, behavioral disorder, brain tumor, malingering, substance abuse, encephalopathy, medication reaction, dementia, hypothyroidism, degenerative neurologic disorder, lupus.... This is not meant to be all-inclusive list EKG interpreted by me (3pts min.). @ -None X-rays interpreted by me (1pt min.). @ -None done CT interpreted by me (1pt min.). @ -CT brain without contrast no acute intracranial abnormality U/S interpreted by me (1pt. min.). @ -None done What testing was considered but not performed or refused? (CT, X-rays, U/S, labs)? Why? @ -None What meds were considered but not given or refused? Why? @ -None Did you discuss the management of the patient with other professionals (professionals i.e. TROY Gasca, FURNITURE PACKER, lab, RT, psych nurse, social science teacher, trimming machine set up operator, teacher, security flex officer, sample case porter)? Give summary @ -i spoke with EPS nurse, Ghada, who has suggested admission of the patient for paranoia. Was smoking cessation discussed for >3mins.? @ -No Was critical care preformed (if so, how long)? @ -No Were there social determinants of health that impacted care today? How? (Homelessness, low income, unemployed, alcoholism, drug addiction, transportation, low edu. Level, literacy, decrease access to med. care, [facility], rehab)? @ -No Was there de-escalation of care discussed even if they declined (Discuss DNR or withdrawal of care, Hospice)? DNR status @ -No What co-morbidities impacted this encounter? (DM, HTN, Smoking, COPD, CAD, Cancer, CVA, ARF, Chemo, Hep., AIDS, mental health diagnosis, sleep apnea, morbid obesity)? @ -None Was patient admitted / discharged? Hospital course, mention meds given and route, prescriptions, significant lab abnormalities, going to OR and other pertinent info. @ -mental health admission. 39-year-old male presenting with abnormal behavior. Patient was originally evaluated emergency room waiting room as a quick note for laboratory studies order in addition to CT imaging. Patient on exam is noted to have a flat affect and relatively paranoid with holding information not answering questions fully. Patient is ANO x 4. Laboratory testing including CBC, CMP, CT brain without contrast within normal limits. Patient will be an inpatient admission to psychiatric unit for further evaluation of paranoia Undiagnosed new problem with uncertain prognosis? @ -No Drug Therapy requiring intensive monitoring for toxicity (Heparin, Nitro, Insulin, Cardizem)? @ -No Were any procedures done? @ -No Diagnosis/symptom? @ -paranoia, hallucinations Acute, or Chronic, or Acute on Chronic? @ -acute Uncomplicated (without systemic symptoms) or Complicated (systemic symptoms)? @ -complicated Side effects of treatment? @ -No Exacerbation, Progression, or Severe Exacerbation? @ -No Poses a threat to life or bodily function? How? (Chest pain, USA, [place], pneumonia, PE, COPD, DKA, ARF, appy, cholecystitis, CVA, Diverticulitis, Homicidal, Lorene cidal, threat to staff... and all critical care pts) @ -No (Julissa Miller) - Lab Data Lab Results 07/21/24 07/21/24 07/21/24 Range/Units 18:27 18:27 21:00 WBC 5.4 (3.8-10.6) k/uL RBC 4.13 L (4.30-5.90) m/uL Hgb 11.7 L (13.0-17.5) gm/dL Hct 35.8 L (39.0-53.0) % MCV 86.7 (80.0-100.0) fL MCH 28.3 (25.0-35.0) pg MCHC 32.7 (31.0-37.0) g/dL RDW 15.2 (11.5-15.5) % Plt Count 154 (150-450) k/uL MPV 9.5 Neutrophils % 55 % Lymphocytes % 34 % Monocytes % 3 % Eosinophils % 5 % Basophils % 1 % Neutrophils # 3.0 (1.3-7.7) k/uL Lymphocytes # 1.8 (1.0-4.8) k/uL Monocytes # 0.2 (0-1.0) k/uL Eosinophils # 0.3 (0-0.7) k/uL Basophils # 0.1 (0-0.2) k/uL Sodium 142 (137-145) mmol/L Potassium 4.7 (3.5-5.1) mmol/L Chloride 104 (98-107) mmol/L Carbon Dioxide 25 (22-30) mmol/L Anion Gap 13 mmol/L BUN 22 H (9-20) mg/dL Creatinine 1.25 (0.66-1.25) mg/dL Est GFR (CKD-EPI)AfAm 84 (>60 ml/min/1.73 sqM) Est GFR (CKD-EPI)NonAf 73 (>60 ml/min/1.73 sqM) Glucose 88 (74-99) mg/dL Calcium 10.1 (8.4-10.2) mg/dL Total Bilirubin 0.8 (0.2-1.3) mg/dL AST 35 (17-59) U/L ALT 18 (4-49) U/L Alkaline Phosphatase 68 (38-126) U/L Total Protein 9.1 H (6.3-8.2) g/dL Albumin 5.3 H (3.5-5.0) g/dL Urine Opiates Screen Not Detected (NotDetected) Ur Oxycodone Screen Not Detected (NotDetected) Urine Methadone Screen Not Detected (NotDetected) Ur Barbiturates Screen Not Detected (NotDetected) U Tricyclic Antidepress Not Detected (NotDetected) Ur Phencyclidine Scrn Not Detected (NotDetected) Ur Amphetamines Screen Not Detected (NotDetected) U Methamphetamines Scrn Not Detected (NotDetected) U Benzodiazepines Scrn Not Detected (NotDetected) Urine Cocaine Screen Not Detected (NotDetected) U Marijuana (THC) Screen Not Detected (NotDetected) SARS-CoV-2 (PCR) (Not Detectd) 07/21/24 Range/Units 22:41 WBC (3.8-10.6) k/uL RBC (4.30-5.90) m/uL Hgb (13.0-17.5) gm/dL Hct (39.0-53.0) % MCV (80.0-100.0) fL MCH (25.0-35.0) pg MCHC (31.0-37.0) g/dL RDW (11.5-15.5) % Plt Count (150-450) k/uL MPV Neutrophils % % Lymphocytes % % Monocytes % % Eosinophils % % Basophils % % Neutrophils # (1.3-7.7) k/uL Lymphocytes # (1.0-4.8) k/uL Monocytes # (0-1.0) k/uL Eosinophils # (0-0.7) k/uL Basophils # (0-0.2) k/uL Sodium (137-145) mmol/L Potassium (3.5-5.1) mmol/L Chloride (98-107) mmol/L Carbon Dioxide (22-30) mmol/L Anion Gap mmol/L BUN (9-20) mg/dL Creatinine (0.66-1.25) mg/dL Est GFR (CKD-EPI)AfAm (>60 ml/min/1.73 sqM) Est GFR (CKD-EPI)NonAf (>60 ml/min/1.73 sqM) Glucose (74-99) mg/dL Calcium (8.4-10.2) mg/dL Total Bilirubin (0.2-1.3) mg/dL AST (17-59) U/L ALT (4-49) U/L Alkaline Phosphatase (38-126) U/L Total Protein (6.3-8.2) g/dL Albumin (3.5-5.0) g/dL Urine Opiates Screen (NotDetected) Ur Oxycodone Screen (NotDetected) Urine Methadone Screen (NotDetected) Ur Barbiturates Screen (NotDetected) U Tricyclic Antidepress (NotDetected) Ur Phencyclidine Scrn (NotDetected) Ur Amphetamines Screen (NotDetected) U Methamphetamines Scrn (NotDetected) U Benzodiazepines Scrn (NotDetected) Urine Cocaine Screen (NotDetected) U Marijuana (THC) Screen (NotDetected) SARS-CoV-2 (PCR) Not Detected (Not Detectd) Disposition <Gunjan Montaño - Last Filed: 07/21/24 16:37> - Out of Hospital Transfer - Req. Specs Out of Hospital Transfer - Requested Specifics: Other Emergency Center ( admit) <Julissa Miller - Last Filed: 07/22/24 02:00> Clinical Impression: Paranoia Disposition: OTHER INSTITUTION NOT DEFINED Condition: Stable
--- NOTE | 2024-07-21 17:28 | CT ---
EXAMINATION TYPE: CT brain wo con DATE OF EXAM: 07/21/2024 COMPARISON: CT brain February 24, 2022 HISTORY: ams CT DLP: 1066.8 mGycm. Automated Exposure Control for Dose Reduction was Utilized. TECHNIQUE: CT scan of the head is performed without contrast. FINDINGS: There is no acute intracranial hemorrhage, mass effect, or midline shift identified. The ventricles and sulci are within normal limits in size. Lawrence-white matter differentiation is maintain ed. Evidence of prior paranasal sinus surgery is redemonstrated. There is partial opacification of th e left frontal sinus on current study. Globes are intact bilaterally. IMPRESSION: No acute intracranial hemorrhage or midline shift is seen. Left frontal sinusitis, corre late clinically. [facility], , 07/21/2024 5:25 PM
[2024-07-21 19:12] LABS: Basophils # (A) 0.1 k/uL (0-0.2); Basophils % (A) 1 %; Eosinophils # (A) 0.3 k/uL (0-0.7); Eosinophils % (A) 5 %; HCT 35.8 % (39.0-53.0); HGB 11.7 gm/dL (13.0-17.5); Lymphocytes # (A) 1.8 k/uL (1.0-4.8); Lymphocytes % (A) 34 %; MCH 28.3 pg (25.0-35.0); MCHC 32.7 g/dL (31.0-37.0); MCV 86.7 fL (80.0-100.0); Mean Platelet Volume 9.5; Monocytes # (A) 0.2 k/uL (0-1.0); Monocytes % (A) 3 %; Neutrophils % (A) 55 %; Platelet Count 154 k/uL (150-450); RBC 4.13 m/uL (4.30-5.90); RDW 15.2 % (11.5-15.5); WBC 5.4 k/uL (3.8-10.6)
[2024-07-21 19:17] LABS: ALT 18 U/L (4-49); AST 35 U/L (17-59); African American GFR (CKD) 84 (>60 ml/min/1.73 sqM); Albumin 5.3 g/dL (3.5-5.0); Alkaline Phosphatase 68 U/L (38-126); Anion Gap 13 mmol/L; Blood Urea Nitrogen 22 mg/dL (9-20); Calcium 10.1 mg/dL (8.4-10.2); Carbon Dioxide 25 mmol/L (22-30); Chloride 104 mmol/L (98-107); Glucose 88 mg/dL (74-99); Non-African American GFR(CKD) 73 (>60 ml/min/1.73 sqM); Potassium 4.7 mmol/L (3.5-5.1); Sodium 142 mmol/L (137-145); Total Bilirubin 0.8 mg/dL (0.2-1.3); Total Protein 9.1 g/dL (6.3-8.2)
[2024-07-21 22:22] LABS: Amphetamine Screen,Urine Not Detected (NotDetected); Barbiturate Screen,Urine Not Detected (NotDetected); Benzodiazepines Screen,Urine Not Detected (NotDetected); Cocaine Screen,Urine Not Detected (NotDetected); Methadone Screen, Urine Not Detected (NotDetected); Opiate Screen,Urine Not Detected (NotDetected); Oxycodone Screen, Urine Not Detected (NotDetected); Phencyclidine Screen,Urine Not Detected (NotDetected); Tricyclic Antidepressant,Urine Not Detected (NotDetected); Urn Cannabinoid Scrn Not Detected (NotDetected)
[2024-07-22] MEDS ORDERED: LORazepam 2 MG/ML INJ IM PRN (00:26)
[2024-07-22] MEDS ORDERED: MAGNESIUM HYDROXIDE 2,400 MG/30 ML CUP PO PRN (00:26)
[2024-07-22] MEDS ORDERED: HALOPERIDOL LACTATE 5 MG/ML 1 ML VIAL IM PRN (00:26)
[2024-07-22] MEDS ORDERED: haloperidoL 5 MG TAB PO PRN (00:26)
[2024-07-22] MEDS ORDERED: MAG HYDROX/AL HYDROX/SIMETH 355 ML BOTTLE PO PRN (00:26)
[2024-07-22] MEDS ORDERED: QUEtiapine 50 MG TAB PO PRN (00:31)
[2024-07-22 02:23] LABS: Appearance,Urine Clear (Clear); Bilirubin,Urine Negative (Negative); Blood,Urine Negative (Negative); Color,Urine Light Yellow; Glucose,Urine (UA) Negative (Negative); Ketones,Urine Negative (Negative); Leukocyte Esterase,Urine Negative (Negative); Nitrite,Urine Negative (Negative); Protein,Urine Negative (Negative); Specific Gravity,Urine 1.031 (1.001-1.035); Urobilinogen,Urine <2.0 mg/dL (<2.0)
[2024-07-22] MEDS: HYDROCORTISONE 10 MG TAB PO SCH (03:13)
[2024-07-22] MEDS: LEVOTHYROXINE 100 MCG TAB PO SCH (06:34)
[2024-07-22] MEDS: NICOTINE 14MG/24HR PATCH TRANSDERM SCH (11:12)
--- NOTE | 2024-07-22 12:53 | P.HP ---
Psychiatric H&P - . H&P Date: 07/22/24 History & Physical: Allergies Allergy/AdvReac Type Severity Reaction Status Date / Time No Known Allergies Allergy Verified 07/21/24 20:56 Vital Signs Temp 97.5 F L 07/22/24 01:31 Pulse 63 07/22/24 01:31 Resp 16 07/22/24 01:31 BP 119/75 07/22/24 01:31 Pulse Ox 99 07/22/24 01:31 FiO2 Intake & Output 07/21/24 07/22/24 07/22/24 18:59 06:59 18:59 Weight 86.183 kg 79.3 kg Laboratory Last Values WBC 5.4 k/uL (3.8-10.6) 07/21/24 18:27 RBC 4.13 m/uL (4.30-5.90) L 07/21/24 18:27 Hgb 11.7 gm/dL (13.0-17.5) L 07/21/24 18:27 Hct 35.8 % (39.0-53.0) L 07/21/24 18:27 MCV 86.7 fL (80.0-100.0) 07/21/24 18:27 MCH 28.3 pg (25.0-35.0) 07/21/24 18:27 MCHC 32.7 g/dL (31.0-37.0) 07/21/24 18:27 RDW 15.2 % (11.5-15.5) 07/21/24 18:27 Plt Count 154 k/uL (150-450) 07/21/24 18:27 MPV 9.5 07/21/24 18:27 Neutrophils % 55 % 07/21/24 18:27 Lymphocytes % 34 % 07/21/24 18:27 Monocytes % 3 % 07/21/24 18:27 Eosinophils % 5 % 07/21/24 18:27 Basophils % 1 % 07/21/24 18:27 Neutrophils # 3.0 k/uL (1.3-7.7) 07/21/24 18:27 Lymphocytes # 1.8 k/uL (1.0-4.8) 07/21/24 18:27 Monocytes # 0.2 k/uL (0-1.0) 07/21/24 18:27 Eosinophils # 0.3 k/uL (0-0.7) 07/21/24 18:27 Basophils # 0.1 k/uL (0-0.2) 07/21/24 18:27 Sodium 142 mmol/L (137-145) 07/21/24 18:27 Potassium 4.7 mmol/L (3.5-5.1) 07/21/24 18:27 Chloride 104 mmol/L (98-107) 07/21/24 18: Carbon Dioxide 25 mmol/L (22-30) 07/21/24 18:27 Anion Gap 13 mmol/L 07/21/24 18:27 BUN 22 mg/dL (9-20) H 07/21/24 18: Creatinine 1.25 mg/dL (0.66-1.25) 07/21/24 18:27 Est GFR (CKD-EPI)AfAm 84 (>60 ml/min/1.73 sqM) 07/21/24 18: Est GFR (CKD-EPI)NonAf 73 (>60 ml/min/1.73 sqM) 07/21/24 18:27 Glucose 88 mg/dL (74-99) 07/21/24 18:27 Calcium 10.1 mg/dL (8.4-10.2) 07/21/24 18: Total Bilirubin 0.8 mg/dL (0.2-1.3) 07/21/24 18:27 AST 35 U/L (17-59) 07/21/24 18:27 ALT 18 U/L (4-49) 07/21/24 18: Alkaline Phosphatase 68 U/L (38-126) 07/21/24 18:27 Total Protein 9.1 g/dL (6.3-8.2) H 07/21/24 18:27 Albumin 5.3 g/dL (3.5-5.0) H 07/21/24 18:27 Urine Color Light Yellow 07/21/24 21:00 Urine Appearance Clear (Clear) 07/21/24 21:00 Urine pH 5.0 (5.0-8.0) 07/21/24 21:00 Ur Specific [place] 1.031 (1.001-1.035) 07/21/24 21:00 Urine Protein Negative (Negative) 07/21/24 21:00 Urine Glucose (UA) Negative (Negative) 07/21/24 21:00 Urine Ketones Negative (Negative) 07/21/24 21:00 Urine Blood Negative (Negative) 07/21/24 21:00 Urine Nitrite Negative (Negative) 07/21/24 21:00 Urine Bilirubin Negative (Negative) 07/21/24 21:00 Urine Urobilinogen <2.0 mg/dL (<2.0) 07/21/24 21:00 Ur Leukocyte Esterase Negative (Negative) 07/21/24 21:00 Urine Opiates Screen Not Detected (NotDetected) 07/21/24 21:00 Ur Oxycodone Screen Not Detected (NotDetected) 07/21/24 21:00 Urine Methadone Screen Not Detected (NotDetected) 07/21/24 21:00 Ur Barbiturates Screen Not Detected (NotDetected) 07/21/24 21:00 U Tricyclic Antidepress Not Detected (NotDetected) 07/21/24 21:00 Ur Phencyclidine Scrn Not Detected (NotDetected) 07/21/24 21:00 Ur Amphetamines Screen Not Detected (NotDetected) 07/21/24 21:00 U Methamphetamines Scrn Not Detected (NotDetected) 07/21/24 21:00 U Benzodiazepines Scrn Not Detected (NotDetected) 07/21/24 21:00 Urine Cocaine Screen Not Detected (NotDetected) 07/21/24 21:00 U Marijuana (THC) Screen Not Detected (NotDetected) 07/21/24 21:00 SARS-CoV-2 (PCR) Not Detected (Not Detectd) 07/21/24 22:41 07/22/24 12:46 IDENTIFYING DATA: Patient is a 39-year-old -[place]ian male, unemployed on disability and living at home with aunt/uncle CHIEF COMPLAINT: Psychosis HPI: Patient presented to the hospital with AMS x 2 days. EPS note revealed, "pt's uncle, Zackary, at bedside; Zackary remained at pt's request. pt states that he came to the hospital because "I kept blacking out" for the past day or so. pt is slow to respond and vague when answering questions. pt also appears to be responding to internal stimuli throughout the entirety of assessment. pt appeared somewhat surprised several times during assessment when he would look over and see script writer before asking script writer's name again. pt admits to hallucinations when script writer questions information obtained from chart. pt states that the voices "carleen" tell him what to do. pt states that they frequently will say things such as "piss off. Get the fuck outta the house." pt denies SI and HI. pt's uncle reports that pt has been responding at home for the past 2 days and it worsened significantly today. Zackary also reports "loud outbursts" and bizarre behavior that is scaring the other members of the household including a 6-year-old child who lives in the home. pt's uncle also states that pt has not slept in the past 2 days and has not been eating." Patient seen and evaluated on the unit and was agreeable with speaking to script writer in room. Patient was disorganized, seen responding to internal stimuli during encounter. He states not feeling well but was unable to elaborate. Thought blocking was evident and patient had difficulty expressing himself. He mentioned things being unbalanced at home but was unable to elaborate further. He denied any sleep or appetite changes. Patient denies any suicidal or homicidal ideations intent or plan. Patient initially denied any auditory or visual hallucinations however when script writer brought up uncle stating patient was hearing voices, patient affirmed that this was true and patient was notably seen responding to internal stimuli during interview. Patient denies any flight of ideas racing thoughts and increased in goal directed behavior. Patient admits to using alcohol and nicotine occasionally. PAST PSYCHIATRIC HISTORY: Patient has a history of head injury but he denied any previous mental health symptoms. Patient denies being on any psychiatric medications. Patient denies any previous psychiatric hospitalizations. Patient denies any psychiatric outpatient follow-up. Patient denies any history of suicide attempts in the past. PMH: as per ER note ALLERGIES: as per EMR SUBSTANCE USE HISTORY: As per HPI FAMILY PSYCHIATRIC/SUBSTANCE USE HISTORY: Denies SOCIAL HISTORY: Patient is single and has 1 child. He is living at home with his aunt and uncle. He completed schooling up to the 10th grade and is unemployed, on disability. MENTAL STATUS EXAM: General Appearance: Patient appears to be stated age is alert, he requires frequent redirection. Patient appears to have poor hygiene and grooming. Behavior: Patient is laying without any agitated behavior. Speech: Patient's speech is fluent and nonpressured. Mood/Affect: Patient reports their mood is "okay", affect is congruent and constricted. Suicidality/Homicidality: Patient denies having any homicidal ideation intent or plan. Denies any suicidal ideations intent or plan Perceptions: Patient denies any visual hallucinations however reports auditory hallucinations and he was seen responding to internal stimuli Though content/process: There is evidence of thought blocking however no overt delusional thoughts expressed Memory and concentration: AOX3, grossly intact for the purposes of this session. Can spell "WORLD" backwards Judgment and insight: Poor STRENGTHS/WEAKNESSES: strength is that patient is resilient and has his family support. Weakness is that patient has poor judgment and is impulsive INTELLECT: Average IMPRESSIONS: Psychosis, unspecified Rule out schizophrenia versus schizoaffective disorder Rule out nicotine dependence PLAN: -Patient is admitted under voluntary status to MHU for stabilization of psychiatric symptoms and safety. Patient has signed adult voluntary form and medication consent and is placed in patient's chart. -Medications : Start Invega 3 mg at bedtime for psychosis -Ativan and Haldol PRN for agitation/aggression -Patient was counselled on substance abuse and desired to cut back on use -Patient was informed of the risks, benefits and side effects of the medication and patient verbally consented to taking the medications. Patient signed med consent form and was placed in chart. -Internal Medicine consult to perform medical evaluation and physical. -NRT -nicotine patch -SW on board for discharge planning. Encourage patient to participate in groups to work on coping skills.
[2024-07-22] MEDS: IBUPROFEN 600 MG TAB PO PRN (12:56)
--- NOTE | 2024-07-22 14:43 | P.CON ---
Consult Note - . Consult date: 07/22/24 (Patient admitted to the psychiatric floor) Assessment/Plan:: This is the consult requested by psychiatry to see the patient and evaluate. Patient seen [id number] today and discussed with the patient. Patient brought to the emergency room because of his irritability and pacing depressed with the auditory hallucination History of present illness: Patient brought by his uncle because he has been pacing ratable and causing some irritability in the home depressed and have some auditory hallucination Patient admitted to the mental health floor with the psychosis. They request medical consult and patient seen today [id number]. On the patient examination he has been not responding to the question and with no eye contact and he is still feeling some voices in his ear no suicidal ideation. Patient has very strong history of multiple medical illness has been seen by [address] Palmer sign out clerk for underlying pituitary insufficiency with the hypopituitarism and has been under went surgical removal of the tumor of the pituitary and [facility] through his nose. Which has been done on 06/24/2019. He had loss of vision in the right eye with the blurred vision on the left eye and seen by the ophthalmology Dr. Jordan,, I will last visit and 03/18/2024. Last visit with Dr. Palmer the sign out clerk 04/01/2024 Last visit with neurology Dr. Adame weight 2 on 06/04/2024. He social history single Smoke half a pack per day intermittently and drink beer intermesenteric His allergy unknown. 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 Shepard hematology oncology. 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 On the reviewing of system: Patient not communicating well and not responding to the question. And otherwise only stated that he had a headache. On the physical exam: Patient has always through the office has on the low side of blood pressure but stable with the loss of his blood pressure 94/70 and the heart rate was 58 with bradycardia mild he is not on any beta-mari or calcium channel mari. The head currently nontraumatic and he had a previous surgery on the pituitary as mentioned before right eyes blind in the left eye blurred need some assistant housekeeping manager occasionally Oropharynx is natural teeth normal swallowing no dysphagia Neck was supple no JVD no thyromegaly no lymphadenopathy trachea midline. Chest clear to auscultation percussion Heart regular sinus rhythm no evidence of atrial fibrillation. Abdomen soft positive bowel sound and no tenderness on palpation. Extremities no edema positive pulses bilateral and symmetrical. Psychiatry: Per the psychiatrist however I feel that the patient may have severe depressive disorder and anxiety with the underlying psychosis considered Neurology no lateralizing sign able to move and ambulate. Assessment: Reviewed the laboratory with the hypoproteinemia hyperalbuminemia, will repeat the test tomorrow to see if it is persistent or due to decreased intake of fluid Will continue his current medication as designed by the above consulting physician. 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 Plan will continue his current medication and Repeat protein total and albumin in a.m. And if it is elevated we will obtain serum protein electrophoresis and urine electrophoresis with the underlying initial lab indicating hyper proteinemia hyper albuminemia Added to his current admission for the psychosis per psychiatry Thank you for letting me evaluate the patient. Thank you
[2024-07-22 16:28] VITALS: BMI 24.3
[2024-07-22] MEDS: PALIPERIDONE 3 MG TAB.ER.24 PO SCH (21:24)
[2024-07-23 09:10] LABS: ALT 16 U/L (4-49); Bilirubin, Delta 0.2 mg/dL (0.0-0.2); Bilirubin,Unconjugated 0.8 mg/dL (0.0-1.1)
[2024-07-23 09:14] LABS: Albumin 5.3 g/dL (3.5-5.0); Total Protein 8.9 g/dL (6.3-8.2)
[2024-07-23 09:16] LABS: AST 40 U/L (17-59); Albumin 5.2 g/dL (3.5-5.0); Alkaline Phosphatase 66 U/L (38-126); Total Protein 8.9 g/dL (6.3-8.2)
--- NOTE | 2024-07-23 11:28 | P.PN ---
Progress Note - Text Progress Note Date: 07/23/24 Interval History: Patient was seen wandering the hallways and was directable and agreeable to lakhwinder corcoran with commercial lines underwriter in the office. Patient continues to display disorganized thoughts however was seen walking about the unit, out of his room. He was adherent with his psychotropic medications last night and denied any adverse effects. He states sleeping and eating okay. He inquires why he was admitted to the hospital and was encouraged to speak to his uncle as he was the one who expressed concerns with patient's behaviors at home. He states he plans on calling his aunt and uncle today. When asked about auditory hallucinations, patient was notably smiling and did report "sometimes" hearing voices, last hearing them "when I was on the phone" however patient previously expressed he has not used the phone while here. He did not appear internally preoccupied during encounter. At this time patient denies any suicidal or homicidal ideations, intent or plan. Patient denies any visual hallucinations and denies any paranoia or delusions. Patient denies any side effects from the medications and has been compliant with meds. Mental Status Exam: General Appearance: Patient appears to be stated age is alert, directable, and cooperative. Behavior: Patient is calmly seated without any agitated behavior. Speech: Patient's speech is fluent and nonpressured. Mood/Affect: Mood is improving mildly, affect is congruent and constricted. Suicidality/Homicidality: Patient denies having any suicidal or homicidal ideation intent or plan. Perceptions: Patient denies any visual hallucinations however he reports auditory hallucinations but did not appear internally preoccupied today Though content/process: Thought process is disorganized however improving, no overt delusional thoughts expressed Memory and concentration: AOX3, grossly intact for the purposes of this session Judgment and insight: Improving mildly Assessment Psychosis, unspecified Rule out schizophrenia versus schizoaffective disorder Plan: -Patient continues to meet criteria for inpatient psychiatric admission for s ymptom stabilization and safety. Patient has signed adult voluntary form and medication consent and was placed in patient's chart. -Medications: Increase Invega to 6 mg at bedtime for psychosis -When necessary Ativan and Haldol for agitation/aggression. -Labs: Reviewed -SW on board for discharge planning. Encouraged the patient to participate in milieu. Anticipate discharge early next week pending stabilization in psychosis
[2024-07-23 16:18] LABS: LDL Cholesterol,Calculated 246.6 mg/dL (0.0-131.0)
[2024-07-23 20:05] LABS: Protein, Total 8.2 g/dL (6.2-8.2)
[2024-07-23] MEDS: ATORVASTATIN 40 MG TAB PO SCH (21:51)
[2024-07-23] MEDS: PALIPERIDONE 6 MG TAB.ER.24 PO SCH (21:51)
--- NOTE | 2024-07-24 11:25 | P.PN ---
Progress Note - Text Progress Note Date: 07/24/24 Interval History: Patient was seen in his room and was directable and agreeable to speak with wr iter in the room. He states feeling "good" today and that he had a full breakfast. He reports sleeping well. He states hearing voices however they are more positive in nature today. He states speaking to his aunt and uncle and that his uncle will be bringing close to the unit today for him. He questions about discharge and was agreeable with early next week discharge. He was encouraged to attend groups. Patient's lipid panel was elevated and he was encouraged to modify his diet and exercise as he is already on a statin. At this time patient denies any suicidal or homicidal ideations, intent or plan. Patient denies any visual hallucinations and denies any paranoia or delusions. Patient denies any side effects from the medications and has been compliant with meds. Mental Status Exam: General Appearance: Patient appears to be stated age is alert, directable, and cooperative. Behavior: Patient is calmly standing without any agitated behavior. Speech: Patient's speech is brief and nonpressured. Mood/Affect: Mood is improving mildly, affect is congruent and constricted. Suicidality/Homicidality: Patient denies having any suicidal or homicidal ideation intent or plan. Perceptions: Patient denies any visual hallucinations however he reports auditory hallucinations, positive in nature Though content/process: There is no evidence of any delusional thought content and thought process is linear and logical, less disorganized. Memory and concentration: AOX3, grossly intact for the purposes of this session Judgment and insight: Improving mildly Assessment Psychosis, unspecified Rule out schizophrenia versus schizoaffective disorder Plan: -Patient continues to meet criteria for inpatient psychiatric admission for symptom stabilization and safety. Patient has signed adult voluntary form and medication consent and was placed in patient's chart. -Medications: Continue Invega 6 mg at bedtime for psychosis -When necessary Ativan and Haldol for agitation/aggression. -Labs: Lipid panel elevated, patient already on a statin. Patient encouraged to modify lifestyle -SW on board for discharge planning. Encouraged the patient to participate in milieu. Anticipate discharge on Sunday back home with aunt and uncle pending stabilization in psychosis
[2024-07-24] MEDS: ARTIFICIAL TEARS-HYPROMELLOSE DROPS 15 ML BTL RIGHT EYE PRN (14:57)
--- NOTE | 2024-07-25 11:42 | P.PN ---
Progress Note - Text Progress Note Date: 07/25/24 Interval History: Patient was seen wandering the hallways and was directable and agreeable to lakhwinder corcoran with creative services writer in the office. He states feeling well today. Patient notably expressed bright affect and appears to be doing much better than previous encounters. He continues to display confusion regarding why he is in the hospital in the first place and he was reminded of the auditory hallucinations and behaviors exhibited at home. He states speaking to his aunt and uncle and that his aunt would like to speak to me. Operator Supply attempted to contact patient's aunt as he signed an HOWARD however was unable to reach. He reports poor sleep overnight and was agreeable with starting trazodone tonight for sleep. He has been attending groups. He states the voices are quiet today. At this time patient denies any suicidal or homicidal ideations, intent or plan. Patient denies any auditory, visual hallucinations and denies any paranoia or delusions. Patient denies any side effects from the medications and has been compliant with meds. Mental Status Exam: General Appearance: Patient appears to be stated age is alert, directable, and cooperative. Behavior: Patient is calmly seated without any agitated behavior. Speech: Patient's speech is fluent and nonpressured. Mood/Affect: Mood is improving mildly, affect is congruent and blunted but reactive. Suicidality/Homicidality: Patient denies having any suicidal or homicidal ideation intent or plan. Perceptions: Patient denies any visual hallucinations and denies any auditory hallucinations Though content/process: There is no evidence of any delusional thought content and thought process is linear and goal-directed. Memory and concentration: AOX3, grossly intact for the purposes of this session Judgment and insight: Improving mildly Assessment Psychosis, unspecified Rule out schizophrenia versus schizoaffective disorder Plan: -Patient continues to meet criteria for inpatient psychiatric admission for symptom stabilization and safety. Patient has signed adult voluntary form and medication consent and was placed in patient's chart. -Medications: Increase Invega to 9 mg at bedtime for psychosis and start trazodone 50 mg at bedtime for insomnia -When necessary Ativan and Haldol for agitation/aggression. -Labs: Reviewed -SW on board for discharge planning. Encouraged the patient to participate in milieu. Anticipate discharge on Sunday back home with aunt and uncle
[2024-07-25 15:46] LABS: Albumin 4.96 g/dL (3.80-4.90); Gamma Globulin 1.29 g/dL (0.70-1.50)
[2024-07-25] MEDS: PALIPERIDONE 3 MG TAB.ER.24 PO SCH (21:40)
[2024-07-25] MEDS: traZODone HCL 50 MG TAB PO SCH (21:41)
[2024-07-25] MEDS: LORazepam 1 MG TAB PO PRN (21:42)
--- NOTE | 2024-07-26 14:39 | P.PN ---
Progress Note - Text Progress Note Date: 07/26/24 Dictation was produced using [employer] dictation software. Please excuse any grammatical, word or spelling errors. Interval history: Patient was seen in his room and was directable and agreeable to speak with the show card writer in the office for psychiatric follow-up. The pt states that he is feeling a little tired today, reported that he could not go to sleep last night, and received prn to help. Reported that his mood is "good." Reported depression and anxiety to be at the low side. He denied any any current suicidal or homicidal thoughts or behavior intention or plan. Reported that he has been seeing carton character "luz," reported that it was started last night, he denied any auditory hallucination. States that the reason for his hospitalization that his uncle thought he was hearing voices and he was agitated at him and he was brought to the hospital at that time. Reported that he gets a long well with others here without any aggression or agitation. Reported that he is compliant with his medication, denied any current side effects, denied any muscle stiffness, rigidity, abnormal movement, or drooling. Mental status exam: General Appearance: Patient appears to be stated age is alert, directable, and cooperative. Behavior: Patient is calmly seated without any agitated behavior. Speech: Patient's speech is fluent and nonpressured. Mood/Affect: Mood is improving mildly, affect is congruent and blunted but reactive. Suicidality/Homicidality: Patient denies having any suicidal or homicidal ideation intent or plan. Perceptions: Patient denies any auditory hallucinations and reported visual hallucinations of seeing "luz," last night Though content/process: There is no evidence of any delusional thought content and thought process is linear and goal-directed. Memory and concentration: AOX3, grossly intact for the purposes of this session Judgment and insight: Improving mildly Assessment Psychosis, unspecified Rule out schizophrenia versus schizoaffective disorder Assessment/Plan: Continue with current diagnosis. Patient continues to meet criteria for inpatient psychiatric admission for symptom stabilization and safety. Patient will be maintained on current psychotropic medication regimen, trazodone was started last night will continue to monitor for side effects. Monitor for medication compliance and for any psychotropic medication side effects. Will continue to monitor ongoing response to treatment. Encouraged participation in milieu.
[2024-07-26 15:11] LABS: Protein, Total 7.5 g/dL (6.2-8.2)
[2024-07-26] MEDS: ACETAMINOPHEN TAB 325 MG TAB PO PRN (20:34)
--- NOTE | 2024-07-27 12:21 | P.PN ---
Progress Note - Text Progress Note Date: 07/27/24 Dictation was produced using [employer] dictation software. Please excuse any grammatical, word or spelling errors. Interval history: Patient was seen in the hallway and was directable and agreeable to speak with the comic writer in the office for psychiatric follow-up. The pt states that he is feeling good today, reported his mood to be "fabulous." Reported that his sleep was better last night, reported as 4 hours. Reported that depression and anxiety are at the low side. He denied any current suicidal or homicidal thoughts or behaviors. Denied any current auditory or visual hallucinations, and reported that it was only one time of visual hallucination yesterday and it did not happen again. Reported that he has been taking his mediation and denied any side effects. He denied any muscle stiffness, rigidity, abnormal movement, or drooling. He claims that he is tending to his ADL and ask if he can shave his escalante. Mental status exam: General Appearance: Patient appears to be stated age is alert, directable, and cooperative. Behavior: Patient is calmly seated without any agitated behavior. Speech: Patient's speech is fluent and nonpressured. Mood/Affect: Mood is improving mildly, affect is congruent and blunted but reactive. Suicidality/Homicidality: Patient denies having any suicidal or homicidal ideation intent or plan. Perceptions: Patient denies any auditory hallucinations or visual hallucinations Though content/process: There is no evidence of any delusional thought content and thought process is linear and goal-directed. Memory and concentration: AOX3, grossly intact for the purposes of this session Judgment and insight: Improving mildly Assessment Psychosis, unspecified Rule out schizophrenia versus schizoaffective disorder Assessment/Plan: Continue with current diagnosis. Patient continues to meet criteria for inpatient psychiatric admission for symptom stabilization and safety. Patient will be maintained on current psychotropic medication regimen. Monitor for medication compliance and for any psychotropic medication side effects. Will continue to monitor ongoing response to treatment. Encouraged participation in milieu.
--- NOTE | 2024-07-27 12:58 | P.CON ---
Consult Note - . Consult date: 07/27/24 (Follow-up on medical consult) Assessment/Plan:: Follow-up on medical consult Date of service 07/27/[address] Jacinto internal medicine Patient seen and evaluated today [id number] with the patient Discussed the finding of the medical abnormalities as well as the laboratories Patient at the time of the admission on July 21 has laboratory and indicating that his total protein 9.1, albumin 5.3 both was significantly high and actually not related to his illness. Patient with a history of pituitary adenoma and underwent surgical treatment through the nose and subsequently he had endocrine deficiency with the underlying Hypothyroidism Hypogood medicine and low cortisone level with the depressed ACTH. He had significant right eye vision abnormalities has been seeing Dr. Napoles for him [employer] emergency services manager in the past and he supposed to have new glasses. Subsequent laboratory in [facility] on 07/23/2024 found that he has the total protein 8.9 and the albumin was still 5.3 and albumin Pap was 4.96 still high and he had at that time we request protein electrophoresis and that was normal with with the command no definite M spike detected. With the impression of hyper proteinemia. And probability of decreased oral intake of fluid. Also the did lipid profile and found that his cholesterol 315 total and LDL 246, his VLDL 21.4 HDL 47, cholesterol/HDL ratio was 6.7 which is elevated. His TSH was normal 0.732. His urine analysis was negative On 07/26/2024 patient had a repeat total protein and that returned turned back to the normal level 7.5 with the average range 6.28.2. Patient has also urine electrophoresis however the result is not available as it is send out to [facility]. Patient seen today as mentioned [id number] and discussed with him and also his vital sign indicating his temperature 98.2 on 07/1124 temperature tympanic and today his temperature temporal 78.3 questionable accuracy. Heart rate 98/min regular sinus, his respiratory rate 17/min, blood pressure 105/67 with a mean 79. His oxygen saturation 100% Head was normocephalic atraumatic He has a right eye knees normal saline with dryness Oropharynx was natural teeth Mild hearing impairment Neck was supple no JVD no thyromegaly no lymphadenopathy and the chest is clear to auscultation and percussion Heart regular sinus rhythm no dysrhythmia Abdomen soft positive bowel sound Extremities no edema Medical assessment: And recommendation and plan. 1. Admission to the hospital for psychosis with probable schizophrenia 2. Multiple endocrine deficiency with the pituitary surgery and hernia for 3. Right eye visual impairment seen by Dr. Dony Jordan ophthalmology 4. Blood pressure is controlled 5. History of hyperproteinemia with a follow-up and the protein electro for this is gradually improved to the normal level with the except clinician Probably not enough fluid or water intake the patient had and recovered during his hospitalization. 6. Found he has hyperlipidemia on this admission as mentioned above currently on atorvastatin 40 mg tablets at bedtime. Plan recommendation: Patient should continue on his atorvastatin and to follow- up with the ophthalmology as outpatient. And continue current home medication added to the psychiatric medication Will be still waiting for urine electrophoresis. Will follow him as outpatient if there is no further abnormalities.
[2024-07-28 07:11] VITALS: BP 107/71; PULSE 125; RESP 16; TEMP 97.6
--- NOTE | 2024-07-28 13:16 | P.DS ---
Providers Date of admission: 07/22/24 00:13 Expected date of discharge: 07/28/24 Attending physician: Miryam Fry MD Consults: 07/22/24 00:26 Consult Physician Routine Consulting Provider: Mick Jacinto Consult Reason/Comments: H & P Do you want consulting provider notified?: Yes, Notify in am Primary care physician: Mick Jacinto - Discharge Diagnosis(es) (1) Unspecified psychosis Current Visit: Yes Status: Acute Priority: High Hospital Course: Admission HPI: Admission note was completed by commercial insurance underwriter "Patient presented to the hospital with AMS x 2 days. EPS note revealed, "pt's uncle, Zackary, at bedside; Zackary remained at pt's request. pt states that he came to the hospital because "I kept blacking out" for the past day or so. pt is slow to respond and vague when answering questions. pt also appears to be responding to internal stimuli throughout the entirety of assessment. pt appeared somewhat surprised several times during assessment when he would look over and see commercial insurance underwriter before asking commercial insurance underwriter's name again. pt admits to hallucinations when commercial insurance underwriter questions information obtained from chart. pt states that the voices "carleen" tell him what to do. pt states that they frequently will say things such as "piss off. Get the fuck outta the house." pt denies SI and HI. pt's uncle reports that pt has been responding at home for the past 2 days and it worsened significantly today. Zackary also reports "loud outbursts" and bizarre behavior that is scaring the other members of the household including a 6-year-old child who lives in the home. pt's uncle also states that pt has not slept in the past 2 days and has not been eating." Patient seen and evaluated on the unit and was agreeable with speaking to commercial insurance underwriter in room. Patient was disorganized, seen responding to internal stimuli during encounter. He states not feeling well but was unable to elaborate. Thought blocking was evident and patient had difficulty expressing himself. He mentioned things being unbalanced at home but was unable to elaborate further. He denied any sleep or appetite changes. Patient denies any suicidal or homicidal ideations intent or plan. Patient initially denied any auditory or visual hallucinations however when commercial insurance underwriter brought up uncle stating patient was hearing voices, patient affirmed that this was true and patient was notably seen responding to internal stimuli during interview. Patient denies any flight of ideas racing thoughts and increased in goal directed behavior. Patient admits to using alcohol and nicotine occasionally." Hospital course: Upon admission to the unit patient was directable and agreeable to commence treatment and signed adult voluntary form.. Patient got along well with other patients on the unit and followed unit protocol. Patient was compliant with the medications and denied any side effects throughout hospital course. Patient was started on Invega and this was increased to 9 mg at bedtime for psychosis, trazodone 50 mg at bedtime for insomnia. Patient spoke of his stressors and engaged in therapy both group and individual. Patient was also seen by medical team for history and physical exam. Throughout the course of the hospitalization patient gradually improved with regards to mood, anxiety, sleep and returned back to their baseline level of functioning. On the day of discharge patient denied any suicidal or homicidal ideations intent or plan denied any auditory or visual hallucinations. The patient denied any access to guns or weapons. Patient denied any paranoia and did not endorse any delusions. Patient does not have a significant history of substance abuse and was counseled on abstaining from all substances including alcohol and marijuana. Patient was also counseled on the medications and need for regular compliance and was encouraged to follow-up with their outpatient appointment for mental health and also for primary care. Prior to discharge a family meeting will be arranged by social studies department chair to answer any questions and ensure safety upon discharge incuding making sure that guns/weapons are either removed from the home or locked away. Patient to be discharged back home with aunt and uncle with [facility] follow-up. Mental status exam: General Appearance: Patient appears to be stated age is alert, pleasant, and cooperative. Patient is in no acute distress and has improved hygiene and grooming Behavior: Patient is calmly seated without any agitated behavior. Speech: Patient's speech is fluent and nonpressured. Mood/Affect: Patient reports their mood is "good", affect is congruent and constricted Suicidality/Homicidality: Patient denies having any suicidal or homicidal ideation intent or plan. Perceptions: Patient denies any auditory or visual hallucinations. Though content/process: There is no evidence of any delusional thought content and thought process is linear and goal-directed. Memory and concentration: AOX3, grossly intact for the purposes of this session. Can spell "WORLD" backwards correctly. Judgment and insight: Fair Impression: Psychosis, unspecified Rule out schizophrenia versus schizoaffective disorder Plan: -Continue with discharge today as patient has improved and stabilized psychiatrically and is not currently an imminent threat to themself and/or others. -Continue medications: Invega 9 mg at bedtime and trazodone 50 mg at bedtime -Patient was counseled on the need for medication compliance and appropriate follow-up at mental health and also primary care for medical issues. Patient verbalized understanding and agreed. -Social work to help coordinate patients discharge today arrange for and conduct family meeting to ensure safety upon discharge and answer any questions/concerns. also to ensure safe home environment that guns/weapons are either removed from the home or locked away. Social work also to arrange for patients follow up appointments with [facility] for psychiatric care along with follow up with primary care provider. -Patient counseled on abstaining from recreational drugs and marijuana and alcohol. Was informed/educated on the adverse effects on their physical and mental health. Patient verbally agreed and understood. -Patient was instructed to return to the hospital or seek immediate medical care if their psychiatric or medical symptoms do worsen or reoccur. Abnormal Labs 07/21/24 07/21/24 07/23/24 18:27 18:27 08:26 RBC 4.13 L Hgb 11.7 L Hct 35.8 L BUN 22 H Total Protein 9.1 H 8.9 H Albumin 5.3 H 5.2 H Albumin (PEP) Cholesterol 315.00 H LDL Cholesterol, Calc 246.6 H 07/23/24 07/23/24 08:26 08:26 RBC Hgb Hct BUN Total Protein 8.9 H Albumin 5.3 H Albumin (PEP) 4.96 H Cholesterol LDL Cholesterol, Calc Vital Signs Temp 97.6 F 07/28/24 06:29 Pulse 125 H 07/28/24 06:29 Resp 16 07/28/24 06:29 BP 107/71 07/28/24 06:29 Pulse Ox 98 07/28/24 06:29 FiO2 Intake & Output 07/27/24 07/28/24 07/28/24 18:59 06:59 18:59 Weight 84.2 kg Allergies Allergy/AdvReac Type Severity Reaction Status Date / Time No Known Allergies Allergy Verified 07/21/24 20:56 Patient Condition at Discharge: Stable Plan - Discharge Summary Discharge Rx Participant: No New Discharge Prescriptions: New traZODone HCL [Desyrel] 50 mg PO HS 30 Days #30 tab Nicotine 14Mg/24Hr Patch [Habitrol] 1 patch TRANSDERM DAILY patch Paliperidone [Invega] 9 mg PO HS 30 Days #90 tab Continue Atorvastatin [Lipitor] 40 mg PO HS 30 Days #30 tab Hydrocortisone [Cortef] 10 mg PO Q12H 30 Days #60 tab Levothyroxine Sodium [Synthroid] 100 mcg PO DAILY 30 Days #30 tab Discharge Medication List Atorvastatin [Lipitor] 40 mg PO HS 30 Days #30 tab 07/28/24 [Rx] Hydrocortisone [Cortef] 10 mg PO Q12H 30 Days #60 tab 07/28/24 [Rx] Levothyroxine Sodium [Synthroid] 100 mcg PO DAILY 30 Days #30 tab 07/28/24 [Rx] Nicotine 14Mg/24Hr Patch [Habitrol] 1 patch TRANSDERM DAILY patch 07/28/24 [Rx] Paliperidone [Invega] 9 mg PO HS 30 Days #90 tab 07/28/24 [Rx] traZODone HCL [Desyrel] 50 mg PO HS 30 Days #30 tab 07/28/24 [Rx] Follow up Appointment(s)/Referral(s): [facility] [Outside] - 07/30/24 1:30 pm [facility]] - 1-2 days Patient Instructions/Handouts: Stress (DC), Paranoid Personality Disorder (DC), Help Prevent Suicide (DC), Psychotic Disorder (DC) Activity/Diet/Wound Care/Special Instructions: [facility] Discharge Info Avoid the use of street drugs and alcohol. Take all medications as prescribed. When you are in need of refills on your medications, please contact your outpatient medical provider and/or outpatient psychiatrist. Please go to your scheduled outpatient appointments for aftercare treatment. If symptoms return or become worse, call the crisis line at or and/or visit the nearest emergency room for assistance. National Suicide and Crisis Lifeline - call or text 988 Discharge/Stand Alone Forms: [facility] PCPs Discharge Disposition: HOME SELF-CARE
[2024-07-29 13:51] LABS: Albumin 4.66 g/dL (3.80-4.90); Gamma Globulin 1.17 g/dL (0.70-1.50)
== END 2024-07-28 16:15 | disposition home or self-care (01) | DRG 750 ==
LOC: EC 15:44 → 3MHU 07-22 00:13
PROVIDERS: ADMIT Psychiatry & Neurology Psychiatry; ATTEND Psychiatry & Neurology Psychiatry
DX: F20.9 Schizophrenia, unspecified (principal); D61.818 Other pancytopenia; I12.9 Hypertensive chronic kidney disease with stage 1 through stage 4 chronic kidney disease, or unspecified chronic kidney disease; N18.2 Chronic kidney disease, stage 2 (mild); D63.1 Anemia in chronic kidney disease; E03.9 Hypothyroidism, unspecified; E55.9 Vitamin D deficiency, unspecified; E78.2 Mixed hyperlipidemia; F17.210 Nicotine dependence, cigarettes, uncomplicated; E23.0 Hypopituitarism; E88.09 Other disorders of plasma-protein metabolism, not elsewhere classified; F32.A Depression, unspecified; F41.9 Anxiety disorder, unspecified; G47.00 Insomnia, unspecified; H54.61 Unqualified visual loss, right eye, normal vision left eye; H54.62 Unqualified visual loss, left eye, normal vision right eye; H91.90 Unspecified hearing loss, unspecified ear; Z79.890 Hormone replacement therapy; Z79.899 Other long term (current) drug therapy; Z28.21 Immunization not carried out because of patient refusal; Z71.3 Dietary counseling and surveillance
CPT/HCPCS: 36415; 70450; 80053; 80061; 80076; 80306; 81003; 82040; 83036; 84155; 84165; 84166; 84443; 85025; 87635; 93005; 99285

== ENCOUNTER 2024-09-15 15:22 | Inpatient (IN) | payer MEDICAID, OTHER ==
--- NOTE | 2024-09-15 15:41 | ED ---
General Adult HPI - General Chief complaint: Psychiatric Symptoms Stated complaint: mental health Time Seen by Provider: 09/15/24 15:35 Source: patient, RN notes reviewed Mode of arrival: ambulatory Limitations: no limitations - History of Present Illness Initial comments: 39-year-old male presenting to the emergency department for complaint of of auditory and visual hallucinations. He states that over the past few weeks hallucinations have been telling him to engage in activities some which have been telling him to harm other people. He is currently denying suicidal or homicidal ideation. States that he was urged by his uncle to report to the doctors hospital department for further evaluation of his abnormal behavior. Patient states that he lives at home and has minimal social support including friends and family. Denies drug or alcohol use. - Related Data Home Medications Medication Instructions Recorded Confirmed Atorvastatin [Lipitor] 40 mg PO HS@1800 09/15/24 09/15/24 Hydrocortisone [Cortef] 10 mg PO Q12HR@0600,1800 09/15/24 09/15/24 Levothyroxine Sodium [Synthroid] 100 mcg PO DAILY@0600 09/15/24 09/15/24 Paliperidone IM [Invega Sustenna] 234 mg IM Q28D 09/15/24 09/15/24 Paliperidone [Invega] 9 mg PO HS@1800 09/15/24 09/15/24 Vitamin D3(Unknown Dose) 1 tab PO DAILY 09/15/24 09/15/24 traZODone HCL [Desyrel] 100 mg PO HS 09/15/24 09/15/24 Allergies Allergy/AdvReac Type Severity Reaction Status Date / Time No Known Allergies Allergy Verified 09/15/24 20:07 Review of Systems ROS Statement: Those systems with pertinent positive or pertinent negative responses have been documented in the HPI. ROS Other: All systems not noted in ROS Statement are negative. Past Medical History Past Medical History: Cancer, Thyroid Disorder Additional Past Medical History / Comment(s): brain tumor History of Any Multi-Drug Resistant Organisms: None Reported Additional Past Surgical History / Comment(s): tumor removed (not able to get it all) Past Psychological History: Depression Smoking Status: Current some day smoker Past Alcohol Use History: None Reported Past Drug Use History: None Reported General Exam - General Exam Comments Initial Comments: Visual Physical Exam Vital signs reviewed General: Well-appearing, nontoxic, no acute distress. Head: Normocephalic, atraumatic Eyes: PERRLA, EOMI ENT: Airway patent Chest: Nonlabored breathing Skin: No visual rash, normal skin tone Neuro: Alert and oriented 3 Musculoskeletal: No gross abnormalities Limitations: no limitations General appearance: alert, in no apparent distress Neck exam: Present: normal inspection. Absent: tenderness, meningismus, lymphadenopathy Respiratory exam: Present: normal lung sounds bilaterally. Absent: respiratory distress, wheezes, rales, rhonchi, stridor Cardiovascular Exam: Present: regular rate, normal rhythm, normal heart sounds. Absent: systolic murmur, diastolic murmur, rubs, gallop, clicks GI/Abdominal exam: Present: soft, normal bowel sounds. Absent: distended, tenderness, guarding, rebound, rigid Extremities exam: Present: normal inspection, full ROM, normal capillary refill. Absent: tenderness, pedal edema, joint swelling, calf tenderness Psychiatric exam: Present: flat affect. Absent: normal affect Expanded Focused psych exam: Absent: psychomotor agitation, paranoid, catatonic, euphoric, loose associations Course Vital Signs 09/15/24 15:32 Temperature 97.6 F Pulse Rate 85 Respiratory 20 Rate Blood Pressure 119/82 O2 Sat by Pulse 99 Oximetry Medical Decision Making - Medical Decision Making Was pt. sent in by a medical professional or institution (TROY Gasca, PATTERN VAULT CLERK, urgent care, hospital, or usp...) When possible be specific @ -No Did you speak to anyone other than the patient for history (EMS, parent, family, police, friend...)? What history was obtained from this source @ -No Did you review nursing and triage notes (agree or disagree)? Why? @ -I reviewed and agree with nursing and triage notes Were old charts reviewed (outside hosp., previous admission, EMS record, old EKG, old radiological studies, urgent care reports/EKG's, usp records)? Report findings @ -No old charts were reviewed Differential Diagnosis (chest pain, altered mental status, abdominal pain women, abdominal pain men, vaginal bleeding, weakness, fever, dyspnea, syncope, headache, dizziness, GI bleed, back pain, seizure, CVA, palpatations, mental health, musculoskeletal)? @ -Differential Mental Health Depression, anxiety, bipolar, psychosis, schizophrenia, borderline personality, situational depression, adjustment disorder, behavioral disorder, brain tumor, malingering, substance abuse, encephalopathy, medication reaction, dementia, hypothyroidism, degenerative neurologic disorder, lupus.... This is not meant to be all-inclusive list EKG interpreted by me (3pts min.). @ -None X-rays interpreted by me (1pt min.). @ -None done CT interpreted by me (1pt min.). @ -None done U/S interpreted by me (1pt. min.). @ -None done What testing was considered but not performed or refused? (CT, X-rays, U/S, labs)? Why? @ -None What meds were considered but not given or refused? Why? @ -None Did you discuss the management of the patient with other professionals (professionals i.e. , PA, PATTERN VAULT CLERK, lab, RT, psych nurse, oncology social worker, primary clinician, teacher, ordnance corps officer, case coordinator)? Give summary @ -EPS nurse who has recommended inpatient admission Was smoking cessation discussed for >3mins.? @ -No Was critical care preformed (if so, how long)? @ -No Were there social determinants of health that impacted care today? How? (H omelessness, low income, unemployed, alcoholism, drug addiction, transportation, low edu. Level, literacy, decrease access to med. care, long-term, rehab)? @ -No Was there de-escalation of care discussed even if they declined (Discuss DNR or withdrawal of care, Hospice)? DNR status @ -No What co-morbidities impacted this encounter? (DM, HTN, Smoking, COPD, CAD, Cancer, CVA, ARF, Chemo, Hep., AIDS, mental health diagnosis, sleep apnea, morbid obesity)? @ -None Was patient admitted / discharged? Hospital course, mention meds given and route, prescriptions, significant lab abnormalities, going to OR and other pertinent info. @ -Mental health admission. 39 year old male presenting with auditory visual hallucinations. Physical examination completed with no acute deficits. Vitals are stable. It is recommended that patient be admitted to the mental health unit for further evaluation. Undiagnosed new problem with uncertain prognosis? @ -No Drug Therapy requiring intensive monitoring for toxicity (Heparin, Nitro, Insulin, Cardizem)? @ -No Were any procedures done? @ -No Diagnosis/symptom? @ -Psychosis, auditory visual hallucinations Acute, or Chronic, or Acute on Chronic? @ -Acute Uncomplicated (without systemic symptoms) or Complicated (systemic symptoms)? @ -Complicated Side effects of treatment? @ -No Exacerbation, Progression, or Severe Exacerbation? @ -No Poses a threat to life or bodily function? How? (Chest pain, USA, VA, pneumonia, PE, COPD, DKA, ARF, appy, cholecystitis, CVA, Diverticulitis, Homicidal, Suicidal, threat to staff... and all critical care pts) @ -No - Lab Data Result diagrams: 09/16/24 09:19 09/16/24 09:19 Lab Results 09/15/24 09/15/24 09/15/24 Range/Units 15:35 15:35 21:25 Urine Color Light Yellow Urine Appearance Clear (Clear) Urine pH 5.5 (5.0-8.0) Ur Specific [place] 1.018 (1.001-1.035) Urine Protein Negative (Negative) Urine Glucose (UA) Negative (Negative) Urine Ketones Negative (Negative) Urine Blood Trace H (Negative) Urine Nitrite Negative (Negative) Urine Bilirubin Negative (Negative) Urine Urobilinogen <2.0 (<2.0) mg/dL Ur Leukocyte Esterase Negative (Negative) Urine RBC 1 (0-5) /hpf Urine WBC 1 (0-5) /hpf Urine Mucus Rare H (None) /hpf Urine Opiates Screen Not Detected (NotDetected) Ur Oxycodone Screen Not Detected (NotDetected) Urine Methadone Screen Not Detected (NotDetected) Ur Barbiturates Screen Not Detected (NotDetected) U Tricyclic Antidepress Not Detected (NotDetected) Ur Phencyclidine Scrn Not Detected (NotDetected) Ur Amphetamines Screen Not Detected (NotDetected) U Methamphetamines Scrn Not Detected (NotDetected) U Benzodiazepines Scrn Not Detected (NotDetected) Urine Cocaine Screen Not Detected (NotDetected) U Marijuana (THC) Screen Not Detected (NotDetected) SARS-CoV-2 (PCR) Not Detected (Not Detectd) Disposition Clinical Impression: Auditory hallucinations Disposition: ADMITTED IP TO THIS HOSP Condition: Fair
[2024-09-15 16:28] LABS: Amphetamine Screen,Urine Not Detected (NotDetected); Barbiturate Screen,Urine Not Detected (NotDetected); Benzodiazepines Screen,Urine Not Detected (NotDetected); Cocaine Screen,Urine Not Detected (NotDetected); Methadone Screen, Urine Not Detected (NotDetected); Opiate Screen,Urine Not Detected (NotDetected); Oxycodone Screen, Urine Not Detected (NotDetected); Phencyclidine Screen,Urine Not Detected (NotDetected); Tricyclic Antidepressant,Urine Not Detected (NotDetected); Urn Cannabinoid Scrn Not Detected (NotDetected)
[2024-09-15] MEDS ORDERED: ACETAMINOPHEN TAB 325 MG TAB PO PRN (22:45)
[2024-09-15] MEDS ORDERED: haloperidoL 5 MG TAB PO PRN (22:45)
[2024-09-15] MEDS ORDERED: MAGNESIUM HYDROXIDE 2,400 MG/30 ML CUP PO PRN (22:45)
[2024-09-15] MEDS ORDERED: MAG HYDROX/AL HYDROX/SIMETH 355 ML BOTTLE PO PRN (22:45)
[2024-09-15] MEDS ORDERED: LORazepam 2 MG/ML INJ IM PRN (22:45)
[2024-09-15] MEDS ORDERED: LORazepam 1 MG TAB PO PRN (22:45)
[2024-09-15] MEDS ORDERED: IBUPROFEN 600 MG TAB PO PRN (22:45)
[2024-09-15] MEDS ORDERED: HALOPERIDOL LACTATE 5 MG/ML 1 ML VIAL IM PRN (22:45)
[2024-09-15] MEDS ORDERED: traZODone HCL 100 MG TAB PO PRN (22:50)
[2024-09-16 00:46] LABS: Appearance,Urine Clear (Clear); Bilirubin,Urine Negative (Negative); Blood,Urine Trace (Negative); Color,Urine Light Yellow; Glucose,Urine (UA) Negative (Negative); Ketones,Urine Negative (Negative); Leukocyte Esterase,Urine Negative (Negative); Mucus,Urine Rare /hpf; Nitrite,Urine Negative (Negative); PH, Urine 5.5 (5.0-8.0); Protein,Urine Negative (Negative); RBC,Urine 1 /hpf (0-5); Specific Gravity,Urine 1.018 (1.001-1.035); Urobilinogen,Urine <2.0 mg/dL (<2.0); WBC,Urine 1 /hpf (0-5)
[2024-09-16] MEDS: LEVOTHYROXINE 100 MCG TAB PO SCH (06:17)
[2024-09-16] MEDS: HYDROCORTISONE 10 MG TAB PO SCH (08:22)
[2024-09-16] MEDS: CHOLECALCIFEROL 25 MCG (1000 IU) TABLET PO SCH (08:22)
[2024-09-16] MEDS: NICOTINE 14MG/24HR PATCH TRANSDERM SCH (08:22)
[2024-09-16 09:46] LABS: Anisocytosis Slight; Basophils % (A) 1 %; Eosinophils # (A) 0.3 k/uL (0-0.7); Eosinophils % (A) 6 %; HGB 10.6 gm/dL (13.0-17.5); Hypochromasia Slight; Lymphocytes # (A) 1.7 k/uL (1.0-4.8); Lymphocytes % (A) 37 %; MCH 29.1 pg (25.0-35.0); MCHC 32.2 g/dL (31.0-37.0); MCV 90.5 fL (80.0-100.0); Mean Platelet Volume 9.4; Monocytes # (A) 0.4 k/uL (0-1.0); Monocytes % (A) 8 %; Neutrophils % (A) 45 %; Platelet Count 152 k/uL (150-450); RBC 3.65 m/uL (4.30-5.90); RDW 16.5 % (11.5-15.5); WBC 4.6 k/uL (3.8-10.6)
[2024-09-16 09:55] LABS: ALT 69 U/L (4-49); AST 69 U/L (17-59); African American GFR (CKD) >90 (>60 ml/min/1.73 sqM); Alkaline Phosphatase 209 U/L (38-126); Anion Gap 8 mmol/L; Blood Urea Nitrogen 15 mg/dL (9-20); Carbon Dioxide 29 mmol/L (22-30); Chloride 103 mmol/L (98-107); Glucose 105 mg/dL (74-99); Non-African American GFR(CKD) >90 (>60 ml/min/1.73 sqM); Potassium 3.9 mmol/L (3.5-5.1); Sodium 140 mmol/L (137-145); Total Bilirubin 0.7 mg/dL (0.2-1.3); Total Protein 6.8 g/dL (6.3-8.2)
--- NOTE | 2024-09-16 14:47 | P.HP ---
Psychiatric H&P - . H&P Date: 09/16/24 History & Physical: Allergies Allergy/AdvReac Type Severity Reaction Status Date / Time No Known Allergies Allergy Verified 09/15/24 20:07 Vital Signs Temp 96.4 F L 09/16/24 08:22 Pulse 79 09/16/24 08:22 Resp 15 09/16/24 00:04 BP 115/80 09/16/24 08:22 Pulse Ox 99 09/16/24 08:22 FiO2 Intake & Output 09/15/24 09/16/24 09/16/24 18:59 06:59 18:59 Weight 100.244 kg 98.543 kg Laboratory Last Values WBC 4.6 k/uL (3.8-10.6) 09/16/24 09:19 RBC 3.65 m/uL (4.30-5.90) L 09/16/24 09:19 Hgb 10.6 gm/dL (13.0-17.5) L 09/16/24 09:19 Hct 33.0 % (39.0-53.0) L 09/16/24 09:19 MCV 90.5 fL (80.0-100.0) 09/16/24 09:19 MCH 29.1 pg (25.0-35.0) 09/16/24 09:19 MCHC 32.2 g/dL (31.0-37.0) 09/16/24 09:19 RDW 16.5 % (11.5-15.5) H 09/16/24 09:19 Plt Count 152 k/uL (150-450) 09/16/24 09:19 MPV 9.4 09/16/24 09:19 Neutrophils % 45 % 09/16/24 09:19 Lymphocytes % 37 % 09/16/24 09:19 Monocytes % 8 % 09/16/24 09:19 Eosinophils % 6 % 09/16/24 09:19 Basophils % 1 % 09/16/24 09:19 Neutrophils # 2.0 k/uL (1.3-7.7) 09/16/24 09:19 Lymphocytes # 1.7 k/uL (1.0-4.8) 09/16/24 09:19 Monocytes # 0.4 k/uL (0-1.0) 09/16/24 09:19 Eosinophils # 0.3 k/uL (0-0.7) 09/16/24 09:19 Basophils # 0.0 k/uL (0-0.2) 09/16/24 09:19 Hypochromasia Slight 09/16/24 09:19 Anisocytosis Slight 09/16/24 09:19 Sodium 140 mmol/L (137-145) 09/16/24 09:19 Potassium 3.9 mmol/L (3.5-5.1) 09/16/24 09:19 Chloride 103 mmol/L (98-107) 09/16/24 09:19 Carbon Dioxide 29 mmol/L (22-30) 09/16/24 09:19 Anion Gap 8 mmol/L 09/16/24 09:19 BUN 15 mg/dL (9-20) 09/16/24 09:19 Creatinine 0.92 mg/dL (0.66-1.25) 09/16/24 09:19 Est GFR (CKD-EPI)AfAm >90 (>60 ml/min/1.73 sqM) 09/16/24 09:19 Est GFR (CKD-EPI)NonAf >90 (>60 ml/min/1.73 sqM) 09/16/24 09:19 Glucose 105 mg/dL (74-99) H 09/16/24 09:19 Calcium 9.0 mg/dL (8.4-10.2) 09/16/24 09:19 Total Bilirubin 0.7 mg/dL (0.2-1.3) 09/16/24 09:19 AST 69 U/L (17-59) H 09/16/24 09:19 ALT 69 U/L (4-49) H 09/16/24 09:19 Alkaline Phosphatase 209 U/L (38-126) H 09/16/24 09:19 Total Protein 6.8 g/dL (6.3-8.2) 09/16/24 09:19 Albumin 4.0 g/dL (3.5-5.0) 09/16/24 09:19 TSH 0.028 mIU/L (0.465-4.680) L 09/16/24 09:19 Urine Color Light Yellow 09/15/24 15:35 Urine Appearance Clear (Clear) 09/15/24 15:35 Urine pH 5.5 (5.0-8.0) 09/15/24 15:35 Ur Specific [place]fl[place] 1.018 (1.001-1.035) 09/15/24 15:35 Urine Protein Negative (Negative) 09/15/24 15:35 Urine Glucose (UA) Negative (Negative) 09/15/24 15:35 Urine Ketones Negative (Negative) 09/15/24 15:35 Urine Blood Trace (Negative) H 09/15/24 15:35 Urine Nitrite Negative (Negative) 09/15/24 15:35 Urine Bilirubin Negative (Negative) 09/15/24 15:35 Urine Urobilinogen <2.0 mg/dL (<2.0) 09/15/24 15:35 Ur Leukocyte Esterase Negative (Negative) 09/15/24 15:35 Urine RBC 1 /hpf (0-5) 09/15/24 15:35 Urine WBC 1 /hpf (0-5) 09/15/24 15:35 Urine Mucus Rare /hpf (None) H 09/15/24 15:35 Urine Opiates Screen Not Detected (NotDetected) 09/15/24 15:35 Ur Oxycodone Screen Not Detected (NotDetected) 09/15/24 15:35 Urine Methadone Screen Not Detected (NotDetected) 09/15/24 15:35 Ur Barbiturates Screen Not Detected (NotDetected) 09/15/24 15:35 U Tricyclic Antidepress Not Detected (NotDetected) 09/15/24 15:35 Ur Phencyclidine Scrn Not Detected (NotDetected) 09/15/24 15:35 Ur Amphetamines Screen Not Detected (NotDetected) 09/15/24 15:35 U Methamphetamines Scrn Not Detected (NotDetected) 09/15/24 15:35 U Benzodiazepines Scrn Not Detected (NotDetected) 09/15/24 15:35 Urine Cocaine Screen Not Detected (NotDetected) 09/15/24 15:35 U Marijuana (THC) Screen Not Detected (NotDetected) 09/15/24 15:35 SARS-CoV-2 (PCR) Not Detected (Not Detectd) 09/15/24 21:25 09/16/24 14:39 IDENTIFYING DATA: Patient is a 39-year-old -I[place]ian male, on disability and living independently CHIEF COMPLAINT: Psychosis HPI: Patient presented to the hospital with AVH. Per EPS, "pt resting in room. pt appears to be intermittently responding to internal stimuli. pt states, "I was feeling and seeing things, so they made me come in." pt reports that his uncle had concerns for his mental health, so the uncle sent pt to ER. pt reports that he feels like "something is pushing me around." pt also reports that he feels as though something is lifting his leg up despite seeing it still lying on the stretcher. pt reports seeing "humans, ghosts, and aliens." pt also reports auditory hallucinations. pt states that these are command in nature at times. pt states that they tell him to do various things such as "have sex, hurt myself, hurt someone else. It depends." pt denies that voices are currently command in nature and states that they were last command this morning when they told him to jump out a window. pt cooperative with assessment." Patient seen and evaluated on the unit and was agreeable with speaking to leader writer in office. 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 He states even on medications he continues to have hallucinations however they are less intense. He denied any worsening or improvement in voices, denying any currently and patient did not appear internally preoccupied. Patient denies any sleep difficulties or decreased energy however does report increase in appetite with resulting weight gain. Discussed with patient regarding antipsychotic medications having the potential to cause weight gain he was in agreement with starting metformin to attempt to counter some of this weight gain he has been having. Patient denies any suicidal or homicidal ideations intent or plan. At this time patient denies any auditory or visual hallucinations. Patient denies any flight of ideas racing thoughts and increased in goal directed behavior. Patient admits to using alcohol occasionally, vaping daily. PAST PSYCHIATRIC HISTORY: Patient has a history of psychosis, unspecified. Patient is currently prescribed Invega Sustenna 234 mg IM every 4 weeks, last given on 09/04 and next due on 10/02. Patient has 1 previous inpatient hospitalization at this facility back in July 2024. Patient follows with [facility] and sees Lenore Velazquez Patient denies any history of suicide attempts in the past. PMH: as per ER note ALLERGIES: as per EMR SUBSTANCE USE HISTORY: Alcohol occasional, vaping daily FAMILY PSYCHIATRIC/SUBSTANCE USE HISTORY: Denies SOCIAL HISTORY: Patient is living independently. He completed school up to the 10th grade however is on disability right now. He has 2 children, single. MENTAL STATUS EXAM: General Appearance: Patient appears to be stated age is alert, directable, and attempts to cooperate. Patient appears to have fair hygiene and grooming. Behavior: Patient is seated without any agitated behavior. There is evidence of psychomotor slowing Speech: Patient's speech is fluent and nonpressured. Mood/Affect: Patient reports their mood is "all right", affect is congruent and constricted. Suicidality/Homicidality: Patient denies having any homicidal ideation intent or plan. Denies any suicidal ideations intent or plan Perceptions: Patient denies any visual hallucinations and denies any auditory hallucinations Though content/process: There is no evidence of any delusional thought content and thought process is linear and logical. Memory and concentration: AOX3, grossly intact for the purposes of this session. Can spell "WORLD" backwards Judgment and insight: Poor STRENGTHS/WEAKNESSES: strength is that patient is resilient and has family support. 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 Patient has signed adult voluntary form and medication consent and is placed in patient's chart. -Medications : Start Zyprexa Zydis 5 mg at bedtime for psychosis, metformin 500 mg twice daily for weight gain, continue Invega Sustenna 234 mg IM every 4 weeks, next due on 10/02/2024 -Ativan and Haldol PRN for agitation/aggression -Patient was counselled on substance abuse and desired to cut back on use -Patient was informed of the risks, benefits and side effects of the medication and patient verbally consented to taking the medications. Patient signed med consent form and was placed in chart. -Internal Medicine consult to perform medical evaluation and physical. -NRT -nicotine patch -SW on board for discharge planning. Encourage patient to participate in groups to work on coping skills. Anticipate discharge back home in 3-5 days
[2024-09-16 17:00] LABS: Chol/HDL Ratio 5.64 Ratio
--- NOTE | 2024-09-16 17:28 | P.CON ---
Consult Note - . Consult date: 09/16/24 Assessment/Plan:: Dictation medical consult to the mental health unit For medical evaluation on the psych unit dated Date of service 09/16/[address] Jacinto. Patient seen examined and evaluated on the mental health unit. Patient admitted on 09/15/2024 through the emergency room with the underlying visual and auditory hallucination. Seen by the psychiatrist evaluated and adjusted his medication. Mr. Wynn 39 years old -Mal[place]ian male single. Patient was not seen in the office since February 29, 2024 with no-show. Patient was treated and sent [facility] with the diagnosis unspecified schizophrenia spectrum and CMH. Patient also has a previous admission on 07/22/[address] Ang Witt. Chief complaint: Patient stated that he has been hearing voices as well as commands and occasionally saying for animals as well with the visual and auditory hallucination. Currently he has no complaint of medical illness however he has not been seen his physicians that has been participating in his care He has neurologist Dr. Rodriguez, he also seen endocrine Dr. Sullivan. Patient seen Dony Richardson rouge sifter. Patient had history of pituitary tumor resection with the different deficiency History of hypogonadism, chronic kidney disease, vitamin D deficiency, anemia of chronic disease, hypothyroidism, acquired ureña cytopenia, Adrenocortical insufficiency Visual impairment with blindness legally with impaired vision in the complete in the right eye and partial in the left eye secondary to his brain tumor which was cancerous. He has also history of hypotension Secondary of low cortisone level He had occasionally frequent headache was treated with Fioricet with codeine 300 50 40 by the neurologist. Social history: Single Used to smoke half a pack a day however he stopped smoking and he is vaping. Allergy unknown Reviewed the laboratories on admission none on the second day 09/16/2024 which is today indicating that WBC 4.6, hemoglobin is 10.6, hematocrit 33 and platelet count 152 Chemistry indicating sodium 140 potassium 3.9 chloride 103 carbon dioxide 29, BUN 15 and creatinine 0.9 and glucose 105 with EGFR for is more than 90 with give us impression of improvement of his renal function and anemia of chronic disease And pancytopenia has been improved. Patient had also chemistry AST 69 and ALT 69, alk phos 209 and the indicating abnormalities with his liver etiology is unknown at this time could be multiple factors. TSH 0.028 which is low and indicate patient taking bigger dose of thyroid than he needed, patient is noncompliant as mentioned was not seen since February 29, 2024. Patient Patient stated that he gained weight with the appetite improved or increased due to psychiatric medication ROS: Psychiatry he has been with the i visual and auditory hallucination and psychosis Neurologically no change GI increased appetite and gained weight Cardiovascular no chest pain or palpitation Neurologically he had history of tumor has been removed and associated diseases follow-up Pulmonary no shortness of breath no cough or expectoration Musculoskeletal negative and he is ambulatory. Rest of review system noncontributory On physical exam: On the day of admission his temperature 97.6 F oral, pulse 85 bpm, respiratory rate 20, blood pressure 119/82 with a mean 94, oxygen saturation 99%. The head was normocephalic atraumatic Normal hearing Oropharynx normal natural teeth. Neck was supple no JVD no thyromegaly no lymphadenopathy, no axillary lymph node Chest clear to auscultation and percussion no wheezes no rhonchi's The heart regular sinus rhythm Abdomen soft positive bowel sound no tenderness no diarrhea or constipation Extremities no edema and positive pulses. Medical assessment: And plan Monitor laboratories indicating that thyroid medication needs to be adjusted and will decrease the thyroid 50% and repeat TSH and free T4 after 6 weeks. Patient under care psych titer he and they will adjust his medication. Pituitary tumor resection with underlying multiple endocrine deficiency and history of hypotension patient has been supplemented and improved in general Weight gain with overeating could be associated with the psychiatric medication. And need to be followed as outpatient but the patient is noncompliant with the follow-up program. Patient also had history of hyperlipidemia and need fasting blood sugar for lipid profile and hemoglobin A1c as well as well as adjustment on the thyroid medication
[2024-09-16] MEDS: metFORMIN 500 MG TAB PO SCH (18:02)
[2024-09-16] MEDS: OLANZapine ODT 5 MG TAB PO SCH (20:42)
[2024-09-16] MEDS: ATORVASTATIN 40 MG TAB PO SCH (20:42)
[2024-09-16] MEDS ORDERED: PALIPERIDONE 3 MG TAB.ER.24 PO SCH (21:00)
[2024-09-17] MEDS: LEVOTHYROXINE 50 MCG TAB PO SCH (06:13)
--- NOTE | 2024-09-17 12:22 | P.PN ---
Progress Note - Text Progress Note Date: 09/17/24 Interval History: Patient was seen in his room and was directable and agreeable to speak with wr iter in the office. He reports feeling better today and that he was able to finally obtain REM sleep, dreaming overnight. He mentions the voices have completely subsided, not appearing internally preoccupied. He spoke to his aunt and states things are well with her. AIMs was grossly negative and patient was reminded of adverse effects given his dual antipsychotic treatment including weight gain and abnormal movements. At this time patient denies any suicidal or homicidal ideations, intent or plan. Patient denies any auditory, visual hallucinations and denies any paranoia or delusions. Patient denies any side effects from the medications and has been compliant with meds. Mental Status Exam: General Appearance: Patient appears to be stated age is alert, directable, and cooperative. Behavior: Patient is calmly seated without any agitated behavior. There is evidence of psychomotor slowing Speech: Patient's speech is fluent and nonpressured. Mood/Affect: Mood is improving mildly, affect is congruent and constricted. Suicidality/Homicidality: Patient denies having any suicidal or homicidal ideation intent or plan. Perceptions: Patient denies any visual hallucinations and denies any auditory hallucinations Though content/process: There is no evidence of any delusional thought content and thought process is linear and logical. Memory and concentration: AOX3, grossly intact for the purposes of this session Judgment and insight: Improving mildly Assessment Psychotic disorder due to another medical condition Nicotine dependence Plan: -Patient continues to meet criteria for inpatient psychiatric admission for symptom stabilization and safety. Patient has signed adult voluntary form and medication consent and was placed in patient's chart. -Medications: Continue Zyprexa Zydis 5 mg at bedtime for psychosis, metformin 500 mg twice daily for weight gain, Invega Sustenna 234 mg IM every 4 weeks, next due on 10/02/2024 -When necessary Ativan and Haldol for agitation/aggression. -Labs: Reviewed -NRT -patient declined -SW on board for discharge planning. Encouraged the patient to participate in milieu. Anticipate discharge back home on Sunday
--- NOTE | 2024-09-18 10:44 | P.PN ---
Progress Note - Text Progress Note Date: 09/18/24 Interval History: Patient was seen in his room and was directable and agreeable to speak with wr iter in the room. AIMs was negative today, no rigidity noted on exam. Patient today expressed no concerns other than being tired due to warm sleeping environment. He reports sleeping well otherwise though. Denied any appetite changes. He continues to express no voices, stating they are completely gone. He states his cousin will likely be able to pick him up tomorrow upon discharge. At this time patient denies any suicidal or homicidal ideations, intent or plan. Patient denies any auditory, visual hallucinations and denies any paranoia or delusions. Patient denies any side effects from the medications and has been compliant with meds. Mental Status Exam: General Appearance: Patient appears to be stated age is alert, directable, and cooperative. Behavior: Patient is calmly seated without any agitated behavior. Some psychomotor slowing Speech: Patient's speech is fluent and nonpressured. Mood/Affect: Mood is improving mildly, affect is congruent and constricted. Suicidality/Homicidality: Patient denies having any suicidal or homicidal ideation intent or plan. Perceptions: Patient denies any visual hallucinations and denies any auditory hallucinations Though content/process: There is no evidence of any delusional thought content and thought process is linear and logical. Memory and concentration: AOX3, grossly intact for the purposes of this session Judgment and insight: Improving mildly Assessment Psychotic disorder due to another medical condition Nicotine dependence Plan: -Patient continues to meet criteria for inpatient psychiatric admission for symptom stabilization and safety. Patient has signed adult voluntary form and medication consent and was placed in patient's chart. -Medications: Continue Zyprexa Zydis 5 mg at bedtime for psychosis, metformin 5 00 mg twice daily for weight gain, Invega Sustenna 234 mg IM every 4 weeks, next due on 10/02/2024 -When necessary Ativan and Haldol for agitation/aggression. -Labs: Reviewed -NRT -patient declined -SW on board for discharge planning. Encouraged the patient to participate in milieu. Anticipate discharge back home tomorrow
[2024-09-19 08:56] VITALS: BP 112/77; PULSE 83; RESP 18; TEMP 98.6
--- NOTE | 2024-09-19 13:14 | P.DS ---
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 Per EPS, "pt resting in room. pt appears to be intermittently responding to internal stimuli. pt states, "I was feeling and seeing things, so they made me come in." pt reports that his uncle had concerns for his mental health, so the uncle sent pt to ER. pt reports that he feels like "something is pushing me around." pt also reports that he feels as though something is lifting his leg up despite seeing it still lying on the stretcher. pt reports seeing "humans, ghosts, and aliens." pt also reports auditory hallucinations. pt states that these are command in nature at times. pt states that they tell him to do various things such as "have sex, hurt myself, hurt someone else. It depends." pt denies that voices are currently command in nature and states that they were last com ashley this morning when they told him to jump out a window. pt cooperative with assessment." Patient seen and evaluated on the unit and was agreeable with speaking to screen writer in office. 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 He states even on medications he continues to have hallucinations however they are less intense. He denied any worsening or improvement in voices, denying any currently and patient did not appear internally preoccupied. Patient denies any sleep difficulties or decreased energy however does report increase in appetite with resulting weight gain. Discussed with patient regarding antipsychotic medications having the potential to cause weight gain he was in agreement with starting metformin to attempt to counter some of this weight gain he has been having. Patient denies any suicidal or homicidal ideations intent or plan. At this time patient denies any auditory or visual hallucinations. Patient denies any flight of ideas racing thoughts and increased in goal directed behavior. Patient admits to using alcohol occasionally, vaping daily." Hospital course: Upon admission to the unit patient was directable and agreeable to commence treatment and signed adult voluntary form.. Patient got along well with other patients on the unit and followed unit protocol. Patient was compliant with the medications and denied any side effects throughout hospital course. Patient was started on Zyprexa 5 mg at bedtime for psychosis, metformin 500 mg twice daily for weight gain. Patient is also on Invega Sustenna 234 mg IM every 4 weeks, next due on 10/02/2024. Aims was negative upon examination and patient was encouraged to continue to monitor his weight given the weight gain from antipsychotics. Patient spoke of his stressors and engaged in therapy both group and individual. Patient was also seen by medical team for history and physical exam. Patient's lipid panel was elevated however he is already on a statin and was encouraged to modify his diet and lifestyle. Throughout the course of the hospitalization patient gradually improved with regards to mood, anxiety, sleep and returned back to their baseline level of functioning. On the day of discharge patient denied any suicidal or homicidal ideations intent or plan denied any auditory or visual hallucinations. The patient denied any access to guns or weapons. Patient denied any paranoia and did not endorse any delusions. Patient does not have a significant history of substance abuse and was counseled on abstaining from all substances including alcohol and marijuana. Patient was also counseled on the medications and need for regular compliance and was encouraged to follow-up with their outpatient appointment for mental health and also for primary care. Social work spoke with patient's aunt who is supportive and confirmed all firearms at his house. Patient to be discharged back home alone and will follow-up with [facility]. Mental status exam: General Appearance: Patient appears to be stated age is alert, pleasant, and cooperative. Patient is in no acute distress and has fair hygiene and grooming Behavior: Patient is calmly seated without any agitated behavior. Some psychomotor slowing noted Speech: Patient's speech is fluent and nonpressured. Mood/Affect: Patient reports their mood is "good", affect is congruent and euthymic. Suicidality/Homicidality: Patient denies having any suicidal or homicidal ideation intent or plan. Perceptions: Patient denies any auditory or visual hallucinations. Though content/process: There is no evidence of any delusional thought content and thought process is linear and goal-directed. Memory and concentration: AOX3, grossly intact for the purposes of this session. Can spell "WORLD" backwards correctly. Judgment and insight: Fair Impression: Psychotic disorder due to another medical condition Nicotine dependence Plan: -Continue with discharge today as patient has improved and stabilized psychiatrically and is not currently an imminent threat to themself and/or others. -Continue medications: Zyprexa 5 mg at bedtime, metformin 500 mg twice daily, Invega Sustenna 234 mg IM every 4 weeks, next due on 10/02/2024 -Patient was counseled on the need for medication compliance and appropriate follow-up at mental health and also primary care for medical issues. Patient verbalized understanding and agreed. -Social work to help coordinate patients discharge today. also to ensure safe home environment that guns/weapons are either removed from the home or locked away. Social work also to arrange for patients follow up appointments with [facility] for psychiatric care along with follow up with primary care provider. -Patient counseled on abstaining from recreational drugs and marijuana and alcohol. Was informed/educated on the adverse effects on their physical and mental health. Patient verbally agreed and understood. -Patient was instructed to return to the hospital or seek immediate medical care if their psychiatric or medical symptoms do worsen or reoccur. Abnormal Labs 09/15/24 09/16/24 09/16/24 15:35 09:19 09:19 RBC 3.65 L Hgb 10.6 L Hct 33.0 L RDW 16.5 H Glucose 105 H AST 69 H ALT 69 H Alkaline Phosphatase 209 H Triglycerides 440.00 H VLDL Cholesterol, Calc 88.00 H HDL Cholesterol 34.20 L TSH 0.028 L Urine Blood Trace H Urine Mucus Rare H Vital Signs Temp 98.6 F 09/19/24 08:55 Pulse 83 09/19/24 08:55 Resp 18 09/19/24 08:55 BP 112/77 09/19/24 08:55 Pulse Ox 100 09/19/24 08:55 FiO2 Allergies Allergy/AdvReac Type Severity Reaction Status Date / Time No Known Allergies Allergy Verified 09/15/24 20:07 Patient Condition at Discharge: Stable Plan - Discharge Summary Discharge Rx Participant: Yes New Discharge Prescriptions: New OLANZapine [ZyPREXA] 5 mg PO DAILY 30 Days #30 tablet metFORMIN HCL [Glucophage] 500 mg PO BID-W/MEALS 30 Days #60 tab Continue Paliperidone IM [Invega Sustenna] 234 mg IM Q28D 30 Days #1.5 ml Vitamin D3(Unknown Dose) 1 tab PO DAILY 30 Days #30 Changed Hydrocortisone [Cortef] 10 mg PO Q12HR@0600,1800 30 Days #60 tab Atorvastatin [Lipitor] 40 mg PO HS@1800 30 Days #30 tab Levothyroxine Sodium [Synthroid] 100 mcg PO DAILY@0600 30 Days #30 tab Discontinued traZODone HCL [Desyrel] 100 mg PO HS Paliperidone [Invega] 9 mg PO HS@1800 Discharge Medication List Atorvastatin [Lipitor] 40 mg PO HS@1800 30 Days #30 tab 09/19/24 [Rx] Hydrocortisone [Cortef] 10 mg PO Q12HR@0600,1800 30 Days #60 tab 09/19/24 [Rx] Levothyroxine Sodium [Synthroid] 100 mcg PO DAILY@0600 30 Days #30 tab 09/19/24 [Rx] OLANZapine [ZyPREXA] 5 mg PO DAILY 30 Days #30 tablet 09/19/24 [Rx] Paliperidone IM [Invega Sustenna] 234 mg IM Q28D 30 Days #1.5 ml 09/19/24 [Rx] Vitamin D3(Unknown Dose) 1 tab PO DAILY 30 Days #30 09/19/24 [Rx] metFORMIN HCL [Glucophage] 500 mg PO BID-W/MEALS 30 Days #60 tab 09/19/24 [Rx] Follow up Appointment(s)/Referral(s): [facility] [Outside] - 09/25/24 11:00 am (09/25/2024 11:00AM - 12:00PM Service: [id number] [facility] Scheduled 10/02/2024 11:30AM - 12:00PM Service: [id number] Scheduled 10/02/2024 12:00PM - 12:15PM Injection [facility] - [facility] Scheduled ) Mick Jacinto MD [Primary Care Provider] - 1-2 days Patient Instructions/Handouts: Psychotic Disorder (DC) Activity/Diet/Wound Care/Special Instructions: [facility] Discharge Info Avoid the use of street drugs and alcohol. Take all medications as prescribed. When you are in need of refills on your medications, please contact your outpatient medical provider and/or outpatient psychiatrist. Please go to your scheduled outpatient appointments for aftercare treatment. If symptoms return or become worse, call the crisis line at or and/or visit the nearest emergency room for assistance. National Suicide and Crisis Lifeline - call or text 630 Discharge Disposition: HOME SELF-CARE
== END 2024-09-19 12:54 | disposition home or self-care (01) | DRG 757 ==
LOC: EC 15:22 → 3MHU 22:16
PROVIDERS: ADMIT Psychiatry & Neurology Psychiatry; ATTEND Psychiatry & Neurology Psychiatry
DX: F06.2 Psychotic disorder with delusions due to known physiological condition (principal); T81.89XS Other complications of procedures, not elsewhere classified, sequela; C71.9 Malignant neoplasm of brain, unspecified; D49.7 Neoplasm of unspecified behavior of endocrine glands and other parts of nervous system; E27.40 Unspecified adrenocortical insufficiency; E78.5 Hyperlipidemia, unspecified; D63.1 Anemia in chronic kidney disease; E07.9 Disorder of thyroid, unspecified; E03.9 Hypothyroidism, unspecified; E29.1 Testicular hypofunction; D61.818 Other pancytopenia; F17.290 Nicotine dependence, other tobacco product, uncomplicated; R63.2 Polyphagia; N18.9 Chronic kidney disease, unspecified; R51.9 Headache, unspecified; F20.9 Schizophrenia, unspecified; E55.9 Vitamin D deficiency, unspecified; F41.9 Anxiety disorder, unspecified; H54.7 Unspecified visual loss; Z79.84 Long term (current) use of oral hypoglycemic drugs; Z79.890 Hormone replacement therapy; Z11.52 Encounter for screening for COVID-19; Z28.310 Unvaccinated for COVID-19; Z28.21 Immunization not carried out because of patient refusal; Z79.899 Other long term (current) drug therapy
CPT/HCPCS: 80053; 80061; 80306; 81001; 82075; 83036; 83721; 84443; 85025; 87635; 99285

== ENCOUNTER 2024-11-05 16:03 | Emergency (ER) | payer OTHER ==
[2024-11-05 16:25] VITALS: RESP 18
--- NOTE | 2024-11-05 16:59 | ED ---
ENT HPI - General Source: patient, RN notes reviewed Mode of arrival: ambulatory Limitations: no limitations <Gunjan Montaño - Last Filed: 11/05/24 16:59> - General Source: patient, RN notes reviewed, old records reviewed <Preston Aguilar - Last Filed: 11/05/24 23:33> - General Chief complaint: ENT Stated complaint: sore throat, abd pain Time Seen by Provider: 11/05/24 16:59 - History of Present Illness Initial comments: Quick [id number] male presenting for sore throat x 2 weeks with nasal congestion, cough, and bodyaches. Denies chest pain or shortness of breath. (Gunjan Montaño) Patient is a 39-year-old male who presents emergency department complaining of congestion, body aches, sore throat for 3 weeks. No fevers. No significant cough. Patient does have a history of prior brain tumor status post removal. P atient also has a psychiatric history. Possible recent medicine changes with Zyprexa. Patient's mother concerned because he has been acting more depressed lately in addition to the URI symptoms. Wants to be evaluated by psychiatry in addition to be evaluated for URI. He denies any suicidal or homicidal ideations, times, plans. Denies any visual or auditory hallucinations. He has no other acute complaints at this time, except for possible constipation but last bowel movement was yesterday. (Preston Aguilar) - Related Data Previous Rx's Medication Instructions Recorded Atorvastatin [Lipitor] 40 mg PO HS@1800 30 Days #30 tab 09/19/24 Hydrocortisone [Cortef] 10 mg PO Q12HR@0600,1800 30 Days 09/19/24 #60 tab Levothyroxine Sodium [Synthroid] 100 mcg PO DAILY@0600 30 Days #30 09/19/24 tab OLANZapine [ZyPREXA] 5 mg PO DAILY 30 Days #30 tablet 09/19/24 Paliperidone IM [Invega Sustenna] 234 mg IM Q28D 30 Days #1.5 ml 09/19/24 Vitamin D3(Unknown Dose) 1 tab PO DAILY 30 Days #30 09/19/24 metFORMIN HCL [Glucophage] 500 mg PO BID-W/MEALS 30 Days #60 09/19/24 tab Allergies Allergy/AdvReac Type Severity Reaction Status Date / Time No Known Allergies Allergy Verified 09/15/24 20:07 Review of Systems ROS Other: All systems not noted in ROS Statement are negative. <Gunjan Montaño - Last Filed: 11/05/24 16:59> ROS Other: All systems not noted in ROS Statement are negative. <Preston Aguilar - Last Filed: 11/05/24 23:33> ROS Statement: Those systems with pertinent positive or pertinent negative responses have been documented in the HPI. Review of Systems: CONST: Denies fever EYES: Denies blurry vision ENT: Endorses congestion C/V: Denies Chest pain RESP: Denies shortness of breath GI: Denies abdominal pain : Denies dysuria SKIN: Denies rash. MSK: Denies joint pain. NEURO: Denies headache (Preston Aguilar) Past Medical History Past Medical History: Cancer, Thyroid Disorder Additional Past Medical History / Comment(s): brain tumor History of Any Multi-Drug Resistant Organisms: None Reported Additional Past Surgical History / Comment(s): tumor removed (not able to get it all) Past Anesthesia/Blood Transfusion Reactions: No Reported Reaction Past Psychological History: Depression Smoking Status: Current some day smoker Past Alcohol Use History: None Reported Past Drug Use History: None Reported <Gunjan Montaño - Last Filed: 11/05/24 16:59> General Exam Limitations: no limitations <Gunjan Montaño - Last Filed: 11/05/24 16:59> <Preston Aguilar - Last Filed: 11/05/24 23:33> - General Exam Comments Initial Comments: Visual Physical Exam Vital signs reviewed General: Well-appearing, nontoxic, no acute distress. Head: Normocephalic, atraumatic Eyes: PERRLA, EOMI ENT: Airway patent Chest: Nonlabored breathing Skin: No visual rash, normal skin tone Neuro: Alert and oriented 3 Musculoskeletal: No gross abnormalities (Gunjan Montaño) General: Appears in no acute distress. HEAD: Normal with no signs of head trauma. EYES: PERRLA, EOMI, conjunctiva normal, no discharge. ENT: Hearing grossly intact, normal oropharynx. Moist mucous membranes. No significant erythema or edema in the posterior oropharynx. No exudates. RESPIRATORY: Clear breath sounds bilaterally. No wheezes, rales, or rhonchi. C/V: Regular rate and rhythm. S1 and S2 auscultated, no edema, peripheral pulses 2+ and intact throughout ABD: Abd is soft, nontender, nondistended EXT: No obvious deformity SKIN: No rashes or lesions observed on exposed skin. NEURO: Alert and oriented x 4. (Preston Aguilar) Course Vital Signs 11/05/24 11/05/24 11/05/24 16:22 20:49 21:22 Temperature 97.4 F L 98.0 F Pulse Rate 104 H 101 H 99 Respiratory 18 18 18 Rate Blood Pressure 113/79 118/77 109/81 O2 Sat by Pulse 94 L 96 97 Oximetry Medical Decision Making <Gunjan Montaño - Last Filed: 11/05/24 16:59> <Preston Aguilar - Last Filed: 11/05/24 23:33> - Medical Decision Making I completed the quick note portion of this chart signed Gunjan Montaño PA-C (Gunjan Montaño) Was pt. sent in by a medical professional or institution (, PA, CONTINUOUS IMPROVEMENT COORDINATOR, urgent care, hospital, or intermediate...) When possible be specific @ -No Did you speak to anyone other than the patient for history (EMS, parent, family, police, friend...)? What history was obtained from this source @ -Discussed with patient's mother who expressed desire to have patient evaluated by psychiatry. Did you review nursing and triage notes (agree or disagree)? Why? @ -I reviewed and agree with nursing and triage notes Were old charts reviewed (outside hosp., previous admission, EMS record, old EKG, old radiological studies, urgent care reports/EKG's, intermediate records)? Report findings @ -No old charts were reviewed Differential Diagnosis (chest pain, altered mental status, abdominal pain women, abdominal pain men, vaginal bleeding, weakness, fever, dyspnea, syncope, headache, dizziness, GI bleed, back pain, seizure, CVA, palpatations, mental health, musculoskeletal)? @ -URI, COVID, flu, RSV, strep, pneumonia, constipation, encounter for psychiatric evaluation, depression. This list is not all inclusive. EKG interpreted by me (3pts min.). @ -None done X-rays interpreted by me (1pt min.). @ -Chest x-ray showed no obvious acute cardiopulmonary process. Abdominal x- ray revealed no evidence of constipation or acute process. Possible kidney stone. CT interpreted by me (1pt min.). @ -None done U/S interpreted by me (1pt. min.). @ -None done What testing was considered but not performed or refused? (CT, X-rays, U/S, labs)? Why? @ -None What meds were considered but not given or refused? Why? @ -None Did you discuss the management of the patient with other professionals (professionals i.e. , PA, CONTINUOUS IMPROVEMENT COORDINATOR, lab, RT, psych nurse, social work professor, scientific informatics project leader, teacher, u.s. revenue officer, outsole caser)? Give summary @ -No Was smoking cessation discussed for >3mins.? @ -No Was critical care preformed (if so, how long)? @ -No Were there social determinants of health that impacted care today? How? (Homelessness, low income, unemployed, alcoholism, drug addiction, transportation, low edu. Level, literacy, decrease access to med. care, custodial, rehab)? @ -No Was there de-escalation of care discussed even if they declined (Discuss DNR or withdrawal of care, Hospice)? DNR status @ -No What co-morbidities impacted this encounter? (DM, HTN, Smoking, COPD, CAD, Cancer, CVA, ARF, Chemo, Hep., AIDS, mental health diagnosis, sleep apnea, morbid obesity)? @ -None Was patient admitted / discharged? Hospital course, mention meds given and route, prescriptions, significant lab abnormalities, going to OR and other pertinent info. @ -Patient presents with multiple what seems like viral syndrome complaints. Started as a quick note. Vitals within acceptable limits. Viral swabs negative. Strep negative. UDS negative. BAT is 0. Chest x-ray unremarkable. Abdominal x-ray shows no evidence of constipation. I discussed the results with the patient as well as his mother. They would like to have psychiatry evaluate the patient as previously this was a psychiatric issue and he does seem depressed. Patient medically cleared for evaluation by psychiatry. Dispos ition pending psychiatric evaluation. EPS Edita notified. Patient was evaluated and ultimately does not meet criteria for inpatient psychiatric care. Recommend follow-up with [facility]. Patient successfully safety plans. Patient given a dose of a steroid prior to discharge. I instructed the patient to follow up with their PCP in the next 1-3 days. I explained that the patient should return to the emergency department if they experience any worsening symptoms. Strict return precautions were discussed with the patient. The patient expressed understanding of these instructions. I answered all questions that the patient had. The patient was discharged home in good condition with their prescriptions and follow up information. Undiagnosed new problem with uncertain prognosis? @ -No Drug Therapy requiring intensive monitoring for toxicity (Heparin, Nitro, Insulin, Cardizem)? @ -No Were any procedures done? @ -No Diagnosis/symptom? @ -Viral syndrome, encounter for psychiatric evaluation Acute, or Chronic, or Acute on Chronic? @ -Acute Uncomplicated (without systemic symptoms) or Complicated (systemic symptoms)? @ -Uncomplicated Side effects of treatment? @ -No Exacerbation, Progression, or Severe Exacerbation? @ -No Poses a threat to life or bodily function? How? (Chest pain, [place], [place], pneumonia, PE, COPD, DKA, ARF, appy, cholecystitis, CVA, Diverticulitis, Homicidal, Suicidal, threat to staff... and all critical care pts) @ -Unlikely at this time (Preston Aguilar) - Lab Data Lab Results 11/05/24 11/05/24 11/05/24 Range/Units 16:25 18:06 19:10 Urine Opiates Screen Not Detected (NotDetected) Ur Oxycodone Screen Not Detected (NotDetected) Urine Methadone Screen Not Detected (NotDetected) Ur Barbiturates Screen Not Detected (NotDetected) U Tricyclic Antidepress Not Detected (NotDetected) Ur Phencyclidine Scrn Not Detected (NotDetected) Ur Amphetamines Screen Not Detected (NotDetected) U Methamphetamines Scrn Not Detected (NotDetected) U Benzodiazepines Scrn Not Detected (NotDetected) Urine Cocaine Screen Not Detected (NotDetected) U Marijuana (THC) Screen Not Detected (NotDetected) Influenza Type A (PCR) Not Detected (Not Detectd) Influenza Type B (PCR) Not Detected (Not Detectd) RSV (PCR) Not Detected (Not Detectd) SARS-CoV-2 (PCR) Not Detected (Not Detectd) Group A Strep (PCR) NOT DETECTED (Not Detectd) Disposition <Gunjan Montaño - Last Filed: 11/05/24 16:59> Is patient prescribed a controlled substance at d/c from ED?: No Time of Disposition: 21:10 <Preston Aguilar - Last Filed: 11/05/24 23:33> Clinical Impression: Viral syndrome, Encounter for psychiatric assessment Disposition: HOME SELF-CARE Condition: Good Instructions (If sedation given, give patient instructions): Viral Syndrome (ED) Referrals: Mick Jacinto MD [Primary Care Provider] - 1-2 days
[2024-11-05 17:12] LABS: Influenza A Not Detected (Not Detectd); Influenza B Not Detected (Not Detectd); RSV Not Detected (Not Detectd)
--- NOTE | 2024-11-05 17:50 | XR ---
EXAMINATION TYPE: XR chest 2V DATE OF EXAM: 11/05/2024 5:18 PM COMPARISON: None CLINICAL INDICATION: Male, 39 years old with history of cough; [facility] TECHNIQUE: XR chest 2V Frontal and lateral views of the chest. FINDINGS: Lungs/Pleura: There is no evidence of pleural effusion, focal consolidation, or pneumothorax. Pulmonary vascularity: Unremarkable. Heart/mediastinum: Cardiomediastinal silhouette is unremarkable. Musculoskeletal: No acute osseous pathology. Other findings: None IMPRESSION: No acute cardiopulmonary disease/process. [facility], , 11/05/2024 5:48 PM
[2024-11-05 19:40] LABS: Amphetamine Screen,Urine Not Detected (NotDetected); Barbiturate Screen,Urine Not Detected (NotDetected); Benzodiazepines Screen,Urine Not Detected (NotDetected); Cocaine Screen,Urine Not Detected (NotDetected); Methadone Screen, Urine Not Detected (NotDetected); Opiate Screen,Urine Not Detected (NotDetected); Oxycodone Screen, Urine Not Detected (NotDetected); Phencyclidine Screen,Urine Not Detected (NotDetected); Tricyclic Antidepressant,Urine Not Detected (NotDetected); Urn Cannabinoid Scrn Not Detected (NotDetected)
--- NOTE | 2024-11-05 19:48 | XR ---
EXAMINATION TYPE: XR abdomen 2V DATE OF EXAM: 11/05/2024 7:22 PM COMPARISON: None CLINICAL INDICATION: Male, 39 years old with history of constipation; TECHNIQUE: Two views of the abdomen were obtained. FINDINGS: Moderate amount stool throughout the colon. The bowel gas pattern is nonspecific without d ilated loops of small or large bowel. . Fecal material and gas are demonstrated throughout the colon and rectum. There is no evidence for organomegaly or pneumoperitoneum. No acute osseous process. . 10 mm calculus of the left pelvis. IMPRESSION: 1. Nonspecific bowel gas pattern without radiographic evidence for acute process. 2. 10 mm calculus in the left pelvis unclear etiology consider CT renal stone protocol for further e valuation. [facility], , 11/05/2024 7:45 PM
[2024-11-05] MEDS: dexAMETHasone 4 MG TAB PO STA (21:15)
[2024-11-05] MEDS: ACETAMINOPHEN TAB 325 MG TAB PO STA (21:15)
[2024-11-05 21:23] VITALS: BP 109/81; PULSE 99; TEMP 98
== END 2024-11-05 21:29 | disposition home or self-care (01) ==
LOC: EC 16:03
DX: B34.9 Viral infection, unspecified (principal); Z04.6 Encounter for general psychiatric examination, requested by authority; F17.200 Nicotine dependence, unspecified, uncomplicated
CPT/HCPCS: 82075; 87651; 80306; 87636; 71046; 74019; 99284; J8540